=== PATIENT | female | born 1950 | race Caucasian/White ===

== ENCOUNTER 2021-09-15 16:59 | Inpatient (IN) | payer MEDICARE, OTHER ==
[~2021-09-15] VITALS: Ht 165.1 cm; Wt 59.0 kg
--- NOTE | 2021-09-15 17:05 | NUR ---
To ER bed 9, KEISHA RA889 From Home "Fell 1 wk ago since then been feeling weak", aaox3, breathing even and non labored, connected to monitor, awaiting md order
[2021-09-15] MEDS ORDERED: LEVO88TA5 PO (17:55)
--- NOTE | 2021-09-15 18:05 | NUR ---
HIGH SCHOOL MUSIC DIRECTOR AT BEDSIDE FOR BLOOD DRAW
--- NOTE | 2021-09-15 18:35 | NUR ---
PATIENT CANNOT GIVE URINE SAMPLE AT THIS TIME, MD AWARE. ORDERED 500ML OF IV NS
[2021-09-15] MEDS ORDERED: IV NS 0.9% 500 ML BAG IV ONE (19:00)
[2021-09-15 19:05] LABS: ALANINE AMINOTRANSFERASE 56 U/L (12-78); ALBUMIN 3.8 g/dL (3.4-5.0); ALKALINE PHOSPHATASE 112 U/L (46-116); ASPARTATE AMINOTRANSFERASE 41 U/L (15-37); BILIRUBIN,DIRECT 0.1 mg/dL (0.0-0.2); BILIRUBIN,TOTAL 0.7 mg/dL (0.2-1.0); CALCIUM, SERUM 8.8 mg/dL (8.5-10.1); CARBON DIOXIDE 22 mmol/L (21-32); CHLORIDE 103 mmol/L (98-107); CREATININE 2.1 mg/dL (0.6-1.3); GLUCOSE 118 mg/dL (74-106); POTASSIUM 3.8 mmol/L (3.5-5.1); SODIUM SERUM 137 mmol/L (136-145); TOTAL PROTEIN, SERUM 7.2 g/dL (6.4-8.2); UREA NITROGEN, BLOOD 23 mg/dL (7-18)
[2021-09-15 19:27] LABS: ACETAMINOPHEN 0 ug/ml (10-30); ALCOHOL, BLOOD 0 mg/dL (0-0)
--- NOTE | 2021-09-15 19:32 | NUR ---
STILL UNABLE TO PROVIDE URINE AT THIS TIME
[2021-09-15 20:23] LABS: BASOPHILS % (AUTO) 0.3 % (0.0-2.0); HEMATOCRIT 44 % (33-45); HEMOGLOBIN 15.1 g/dL (11.5-14.8); LYMPHOCYTES # (AUTO) 1.2 K/uL (0.8-4.8); LYMPHOCYTES % (AUTO) 8.4 % (20.0-44.0); MEAN CORPUSCULAR HGB CONC 34 g/dl (31.0-36.0); MEAN CORPUSCULAR VOLUME 89 fL (82-100); MONOCYTES # (AUTO) 1.7 K/uL (0.1-1.30); MONOCYTES % (AUTO) 11.8 % (2.0-12.0); NEUTROPHILS # (AUTO) 11.6 K/uL (1.8-8.9); NEUTROPHILS % (AUTO) 79.5 % (43.0-81.0); PLATELET COUNT (AUTO) 232 K/uL (150-450); RED BLOOD CELL COUNT(AUTO) 4.99 MIL/uL (4.0-5.2); WHITE BLOOD COUNT (AUTO) 14.6 K/uL (4.3-11.0)
--- NOTE | 2021-09-15 20:27 | NUR ---
COVID SWAB COLLECTED SENT TO LAB
[2021-09-15 20:30] VITALS: BP 136/84
--- NOTE | 2021-09-15 20:54 | NUR ---
MRSA SWAB COLLECTED AND SENT TO LAB. PATIENT'S BELONGINGS LIST DONE.
--- NOTE | 2021-09-15 22:14 | NUR ---
REPORT GIVEN TO CHARGE NURSE
--- NOTE | 2021-09-15 22:30 | NUR ---
ENVELOPE ADJUSTERDOOR ASSEMBLER NOTES RECEIVED PT FROM ED VIA FRANCISCA, A/O Lizeth3, DIFFICULT TO GET RELIABLE HPI DUE TO FREQUENT TANGENTS AND PARANOIA. NOT IN APPARENT DISTRESS. BREATHING EVEN AND NON-LABORED ON ROOM AIR. HAS LEFT WRIST IV ACCESS #22G AND SALINE LOCKED. NO S/S OF INFILTRATION NOTED. DISTENDED BLADDER NOTED. SAFETY PRECAUTIONS IN PLACE. WILL CONTINUE PLAN OF CARE.
--- NOTE | 2021-09-15 22:37 | NUR ---
PT TRANSFERRED UNDER ACLS
[2021-09-15] MEDS ORDERED: ONDANSETRON HCL/PF 4 MG/2 ML VIAL IVP PRN (23:00)
[2021-09-15] MEDS ORDERED: Z GUARD REMEDY 4 OZ OINT TP PRN (23:00)
[2021-09-15] MEDS ORDERED: IV 1/2NS 1000 ML 1,000 ML IV PRN (23:00)
[2021-09-16] VITALS: BP 122/59
--- NOTE | 2021-09-16 01:39 | NUR ---
PT HAD >835 ML URINE RETENTION. REFUSED FRANKLIN CATH. PT PEED ALREADY. ELVIS STANFORD NOTIFIED. Addendum: 09/16/21 at 0141 by September DARRIN SLATER Amended: Links added.
[2021-09-16] MEDS ORDERED: LORAZEPAM INJ 2 MG/ML VIAL IV PRN (02:00)
[2021-09-16 04:00] VITALS: BP 122/59
--- NOTE | 2021-09-16 06:45 | NUR ---
STITCH WHEELER NOTES PT ASKED FOR ACCUCHECK @ 0530. I TOLD HER THAT SHE DOESN'T HAVE AN ORDER BUT I WILL CHECK IT @ 0630. WHEN OFFERED, PT REFUSED AND VERBALIZED THAT SHE ALREADY DID IT.
[2021-09-16] MEDS: PANTOPRAZOLE 40 MG TABLET.DR PO SCH ×2 (07:30→08:15)
[2021-09-16] MEDS: LEVOTHYROXINE SODIUM 100 MCG TABLET PO SCH ×2 (07:30→08:16)
--- NOTE | 2021-09-16 07:34 | NUR ---
VACUUM FORMING MACHINE OPERATOR CLOSING NOTES PT LYING IN BED ASLEEP, EASY TO AROUSE. A/O X3. GETS AGITATED WHEN ASKED MULTIPLE QUESTIONS. REFUSED BLOOD DRAW THIS AM. NO C/O PAIN OR DISCOMFORT AT THIS. NO SOB OR NOTED. TOLERATING ROOM AIR WELL. HAS LEFT WRIST IV ACCESS #22G WITH 1/2 NS RUNNING AT 75 ML/HR. INTACT, PATENT AND FLUSHING. ALL NEEDS ATTENDED. SAFETY PRECAUTIONS IN PLACE: BED LOW AND LOCKED, SIDE RAILS UP X2, CALL LIGHT WITHIN REACH. Addendum: 09/16/21 at 0743 by September DARRIN SLATER ON TELE MONITOR READING SINUS RHYTHM AT 74 BPM.
--- NOTE | 2021-09-16 08:00 | NUR ---
RN NOTES RESTING IN BED, NOT IN ACUTE DISTRESS. DOES NOT WANT TO BE BOTHERED AT THIS TIME. VS REFUSED AND LAB REFUSED EARLIER. SAFETY MEASURES IN PLACE.
[2021-09-16] MEDS: HEPARIN SODIUM, PORCINE 5000 UNITS/1 ML VIAL SQ SCH ×2 (08:15→20:47)
--- NOTE | 2021-09-16 09:33 | NUR ---
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 EXPLAINED TO PATIENT THAT DIET WILL BE UPDATED ACCORDINGLY AND WILL CHECK WHY CONSULT WAS DONE. PATIENT INSISTED THAT SHE DOES NOT TAKE ANY MEDICATIONS AND IS OKAY.
--- NOTE | 2021-09-16 09:57 | NUR ---
RN NOTES PATIENT STATES THAT SHE IS VEGAN AND DOES NOT EAT ANIMAL PRODUCTS; DIET UPDATED.
--- NOTE | 2021-09-16 10:18 | NUR ---
RN NOTES PHLEB TECH AT BEDSIDE FOR BLOOD DRAW; PATIENT REFUSED ATTEMPT X2. WILL TRY AGAIN LATER.
--- NOTE | 2021-09-16 14:27 | NUR ---
RN NOTES PATIENT PULLED OUT PERIPHERAL IV LINE. CHARGE NURSE AND RN ASSIGNED AT BEDSIDE; PATIENT STATED THAT SHE DOES NOT NEED IV HYDRATION AND THAT SHE IS FINE AND THAT SHE IS GOING TO GO HOME TODAY. ASKED PATIENT WHO WILL PICK HER UP AND SHE SAID THAT HER DOCTOR AND HER BROTHER WILL PICK HER UP. UNABLE TO PROVIDE INFORMATION ABOUT PREVIOUS LIVING ARRANGEMENT.
--- NOTE | 2021-09-16 18:03 | NUR ---
RN NOTES PATIENT CONTINUE TO REFUSE LABS AND VITAL SIGNS; STATES THAT SHE IS FEELING OKAY. CHARGE NURSE AND MD AWARE.
--- NOTE | 2021-09-16 19:17 | NUR ---
RN NOTES ENDORSED TO DAIRY FEED SALES CONSULTANT RN FOR HERBERT.
--- NOTE | 2021-09-16 19:40 | NUR ---
TELE/RN OPENING NOTE RECEIVED PATIENT RESTING IN BED. AWAKE, ALERT AND ORIENTED X 2-3. ABLE TO MAKE NEEDS KNOWN. DENIES PAIN AT THIS TIME. CONTINUES ON ROOM AIR WITH NO S/SX OF RESPIRATORY DISTRESS NOTED. REFUSING IV ACCESS - MD AWARE. REFUSING TELE MONITOR - MD AWARE. ATTEMPTED TO HAVE ORTHODONTIC TECHNICIAN ASSISTANT PERFORM ADL CARE AT BEGINNING OF SHIFT WITH PATIENT REFUSING TO CHANGE. WILL ATTEMPT LATER IN THE SHIFT. CONTINUES ON REGULAR DIET WITH NO S/SX OF ASPIRATION NOTED. CALL LIGHT WITHIN REACH. ASPIRATION, FALL AND SAFETY PRECAUTIONS MAINTAINED. ALL NEEDS ATTENDED TO AT THIS TIME.
--- NOTE | 2021-09-16 20:50 | NUR ---
TELE/RN NOTE PATIENT REFUSING 2100 MEDICATIONS. EDUCATED ON RISKS/BENEFITS WITH PATIENT CONTINUING TO REFUSE. MD AWARE OF REFUSALS.
--- NOTE | 2021-09-16 22:30 | NUR ---
TELE/RN NOTE PATIENT REQUESTING BLOOD SUGAR TO BE CHECKED. RESULT IS 67. NO S/SX OF HYPOGLYCEMIA NOTED. PATIENT HAS BEEN REFUSING CARE/MEDS/MEALS. PROVIDED JUICE AND SNACKS.
--- NOTE | 2021-09-17 00:11 | NUR ---
TELE/RN NOTE PATIENT REFUSES FRANKLIN CATHETER TO BE PLACED. ALLOWED STAFF TO PERFORM ADL CARE WITH PATIENT NOTED TO BE INCONTINENT OF BOTH URINE AND BOWEL. Addendum: 09/17/21 at 0012 by LINDA GRIMM RN Amended: Links added.
--- NOTE | 2021-09-17 06:40 | NUR ---
TELE/RN CLOSING NOTE PATIENT CURRENTLY SLEEPING IN BED. ALERT AND ORIENTED X 2-3. ABLE TO MAKE NEEDS KNOWN. DENIES PAIN AT THIS TIME. CONTINUES ON ROOM AIR WITH NO S/SX OF RESPIRATORY DISTRESS NOTED. REFUSING IV ACCESS - MD AWARE. REFUSING TELE MONITOR - MD AWARE. REFUSING ADL CARE AT END OF SHIFT. CONTINUES ON REGULAR DIET WITH NO S/SX OF ASPIRATION NOTED. CALL LIGHT WITHIN REACH. ASPIRATION, FALL AND SAFETY PRECAUTIONS MAINTAINED. WILL ENDORSE PLAN OF CARE TO ONCOMING SHIFT RN.
[2021-09-17] MEDS: LEVOTHYROXINE SODIUM 100 MCG TABLET PO SCH (07:30)
[2021-09-17] MEDS: PANTOPRAZOLE 40 MG TABLET.DR PO SCH (07:30)
--- NOTE | 2021-09-17 07:30 | NUR ---
RN NOTES SEEN PATIENT IN BED, AWAKE AND VERBALLY RESPONSIVE. ASKED IF PATIENT IS OKAY AND IMMEDIATELY STATED "I DON'T WANT YOU HERE IN MY ROOM, GET OUT". REFUSED AM MEDS AND ALSO IV INSERTION/HYDRATION, STATED THAT SHE'S FEELING OKAY. SAFETY MEASURES IN PLACE.
--- NOTE | 2021-09-17 07:50 | NUR ---
RN NOTES PATIENT SEEN BY DR. THAYER AT BEDSIDE; PATIENT ALSO VERBALIZED "GO AWAY" TO MD. MD MADE AWARE THAT PATIENT REFUSED PSYCH CONSULT YESTERDAY AND MD STATED THAT PATIENT STILL NEEDS PSYCH CONSULT AND CRISIS TEAM INVOLVED.
[2021-09-17] MEDS: HEPARIN SODIUM, PORCINE 5000 UNITS/1 ML VIAL SQ SCH ×2 (08:21→21:00)
--- NOTE | 2021-09-17 08:22 | NUR ---
RN NOTES EXPLAINED IMPORTANCE OF VS, ASSESSMENT, AND MEDICATION COMPLIANCE TO PATIENT BUT PATIENT INSISTED ON REFUSING.
--- NOTE | 2021-09-17 08:22 | NUR ---
RN NOTES PER PSYCHIATRIC CNS ASSIGNED, PATIENT REFUSED VS TO BE TAKEN.
--- NOTE | 2021-09-17 09:22 | NUR ---
consult for parania, & safe discharge planning was requested over the weekend. NICK will follow up. Addendum: 09/17/21 at 0923 by NATHALIE ROMERO consult for paranoia
--- NOTE | 2021-09-17 10:31 | NUR ---
RN NOTES CRISIS TEAM CONTACTED BY PRODUCTION PLANNER. WILL COME TO SEE PATIENT.
--- NOTE | 2021-09-17 11:54 | NUR ---
RN NOTES SPOKE W/ JODY ([id number]), PATIENT'S HOME CAREGIVER, AND INFORMED ABOUT PATIENT'S CONDITION AND ADMISSION IN THE HOSPITAL.
--- NOTE | 2021-09-17 18:59 | NUR ---
RN NOTES SITTER AT BEDSIDE W/ PATIENT; STILL REFUSING CARE FROM STAFF. UNABLE TO BE REDIRECTED PATIENT GOES OFF ON TANGENT. SAFETY MEASURES MAINTAINED.
--- NOTE | 2021-09-17 19:20 | NUR ---
TELE/RN OPENING NOTE RECEIVED PATIENT RESTING IN BED. AWAKE, ALERT AND ORIENTED X 2. DENIES PAIN AT THIS TIME. CONTINUES ON ROOM AIR WITH NO S/SX OF RESPIRATORY DISTRESS NOTED. CONTINUES WITH 1:1 SITTER AND 5150 HOLD. CONTINUES TO REFUSE IV ACCESS. CONTINUES TO REFUSE TELE MONITOR. CALL LIGHT WITHIN REACH. ASPIRATION, FALL AND SAFETY PRECAUTIONS MAINTAINED. ALL NEEDS ATTENDED TO AT THIS TIME.
--- NOTE | 2021-09-17 21:15 | NUR ---
TELE/RN NOTE PATIENT REFUSING HS MEDICATIONS. STATES SHE DOES NOT NEED THEM. MD AWARE OF PATIENT REFUSALS. ALL NEEDS ATTENDED TO AT THIS TIME.
[2021-09-17] MEDS ORDERED: risperiDONE 1 MG TABLET PO ONE (22:00)
[2021-09-17] MEDS ORDERED: DIVALPROEX SODIUM 125 MG CAP.SPRINK PO ONE (22:00)
--- NOTE | 2021-09-17 22:20 | NUR ---
TELE/RN NOTE DR. GARCIA IN TONIGHT TO SEE PATIENT WITH NEW ORDERS FOR DEPAKOTE BID AND RISPERDAL BID. MD REQUESTED TO HAVE ONE DOSE OF EACH GIVEN TONIGHT. ORDERS INPUTTED. ATTEMPTED TO GIVE TO PATIENT WITH PATIENT REFUSING STATING "I HAVE NO PSYCH ISSUES. I DON'T NEED MEDICATION". 1:1 SITTER IN ROOM. PATIENT RESTING COMFORTABLY IN BED. ALL NEEDS ATTENDED TO AT THIS TIME.
--- NOTE | 2021-09-17 23:16 | NUR ---
PATIENT REFUSING FRANKLIN CATHETER PLACEMENT. PATIENT HAS BEEN URINATING WITHOUT DIFFICULTY. Addendum: 09/17/21 at 2316 by LINDA GRIMM RN Amended: Links added.
[2021-09-17] MEDS ORDERED: TRAZODONE 50 MG TABLET PO SCH (23:24)
--- NOTE | 2021-09-18 06:10 | NUR ---
TELE/RN CLOSING NOTE PATIENT CURRENTLY SLEEPING IN BED. ALERT AND ORIENTED X 2. DENIES PAIN AT THIS TIME. CONTINUES ON ROOM AIR WITH NO S/SX OF RESPIRATORY DISTRESS NOTED. CONTINUES WITH 1:1 SITTER AND 5150 HOLD. CONTINUES TO REFUSE IV ACCESS. CONTINUES TO REFUSE TELE MONITOR. CALL LIGHT WITHIN REACH. ASPIRATION, FALL AND SAFETY PRECAUTIONS MAINTAINED. ALL NEEDS ATTENDED TO AT THIS TIME. WILL ENDORSE PLAN OF CARE TO ONCOMING SHIFT RN.
[2021-09-18] MEDS: LEVOTHYROXINE SODIUM 100 MCG TABLET PO SCH (07:30)
[2021-09-18] MEDS: PANTOPRAZOLE 40 MG TABLET.DR PO SCH (07:30)
--- NOTE | 2021-09-18 07:30 | NUR ---
DIRECTOR CLINICAL RESEARCH OPENING NOTE Patient in bed, awake. A/O x 2, patient is agitated and paranoid. On room air, breathing evenly and unlabored. No SOB or s/s of distress noted. No IV access, patient refusing. MD aware. Patient refusing tele monitoring as well. Safety precautions in place: bed in low, locked position; siderails up x 2; call light within reach. Will continue to monitor.
[2021-09-18] MEDS ORDERED: DIVALPROEX SODIUM 125 MG CAP.SPRINK PO SCH (09:00)
[2021-09-18] MEDS ORDERED: risperiDONE 1 MG TABLET PO SCH (09:00)
[2021-09-18] MEDS: HEPARIN SODIUM, PORCINE 5000 UNITS/1 ML VIAL SQ SCH (09:00)
[2021-09-18 12:17] VITALS: BP 139/92
--- NOTE | 2021-09-18 14:30 | NUR ---
DISCHARGE NOTE Received order for discharge. Patient is A/O x 2, agitated and paranoid. Stable on room air, breathing evenly and unlabored. No SOB or s/s of distress noted. Patient is being discharged from acute care and transferred to GPS unit. Report given to NOHEMY Jeong. All belongings accounted for. No IV access. ID band removed. Patient refused photos to be taken of her multiple bruises and scratches. Patient wheeled down to GPS unit in stable condition. Exitcare folder given to RN.
[2021-09-18] MEDS ORDERED: HEPA50008 SQ (15:23)
[2021-09-18] MEDS ORDERED: DIVA125C2 PO (15:23)
[2021-09-18] MEDS ORDERED: RISP0.5T65 PO (15:23)
[2021-09-18] MEDS ORDERED: ALLA266C2 TP (15:23)
[2021-09-18] MEDS ORDERED: PANT40TA2 PO (15:23)
[2021-09-18] MEDS ORDERED: ONDA4TAB5 PO (15:26)
[2021-09-18] MEDS ORDERED: LORA2VIA6 IV (15:26)
== END 2021-09-18 14:40 | DRG 683 ==
LOC: ER 17:01 → TELE 22:05 → MED 09-18 13:49
PROVIDERS: ADMIT Nurse Practitioner Family; ATTEND Internal Medicine
DX: N17.0 Acute kidney failure with tubular necrosis (principal); F31.64 Bipolar disorder, current episode mixed, severe, with psychotic features; N18.9 Chronic kidney disease, unspecified; D72.829 Elevated white blood cell count, unspecified; Z20.822 Contact with and (suspected) exposure to COVID-19; Z91.040 Latex allergy status; Z88.5 Allergy status to narcotic agent; Z88.0 Allergy status to penicillin; Z88.2 Allergy status to sulfonamides; Z88.8 Allergy status to other drugs, medicaments and biological substances; Z91.018 Allergy to other foods; Z91.81 History of falling; W18.30XA Fall on same level, unspecified, initial encounter; Y92.002 Bathroom of unspecified non-institutional (private) residence as the place of occurrence of the external cause; E03.9 Hypothyroidism, unspecified; Z79.890 Hormone replacement therapy; F43.9 Reaction to severe stress, unspecified; R73.9 Hyperglycemia, unspecified; F29 Unspecified psychosis not due to a substance or known physiological condition
CPT/HCPCS: 36415; 70450-TC; 71045-TC; 76770-TC; 80048-TC; 80076-TC; 82962-TC; 84443-TC; 84484-TC; 85025-TC; 87081-TC; C9803; G0378; G0480; J1644; J3490; J7030; J7040

== ENCOUNTER 2021-09-18 11:30 | Inpatient (IN) | payer MEDICARE, OTHER ==
[~2021-09-18] VITALS: Ht 152.4 cm; Wt 61.2 kg
[~2021-09-18 11:30] MED LIST: LEVO88TA5 PO
--- NOTE | 2021-09-18 14:55 | NUR ---
RN-CO: Patient refused labs works 3x already.
[2021-09-18] MEDS ORDERED: MAGNESIUM HYDROXIDE 30 ML UDC PO PRN (15:00)
[2021-09-18] MEDS ORDERED: MAG HYDROX/AL HYDROX/SIMETH 30 ML UDC PO PRN (15:00)
[2021-09-18] MEDS ORDERED: ALLA266C2 TP (15:23)
[2021-09-18] MEDS ORDERED: PANT40TA2 PO (15:23)
[2021-09-18] MEDS ORDERED: DIVA125C2 PO (15:23)
[2021-09-18] MEDS ORDERED: HEPA50008 SQ (15:23)
[2021-09-18] MEDS ORDERED: RISP0.5T65 PO (15:23)
[2021-09-18] MEDS ORDERED: LORA2VIA6 IV (15:26)
[2021-09-18] MEDS ORDERED: ONDA4TAB5 PO (15:26)
[2021-09-18 16:00] VITALS: BP 149/99
[2021-09-18] MEDS ORDERED: BLOOD SUGAR DIAGNOSTIC 1 EACH STRIP IN ONE (16:30)
--- NOTE | 2021-09-18 16:52 | NUR ---
ACTING SECTION CHIEF NOTE : PATIENT 70 Y/O FEMALE ADMITTED FROM [facility] PATIENT PLACED ON 5150 HOLD FOR GD. 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 PATIENT THINKS THE POLICE ARE CONSPIRING AGAINST HER. PATIENT REFUSED ALL CARE.PATIENT IS AGITATED AND ANGRY REFUSING ALL CARE AND INTERVIEW,PATIENT HAS IMPAIRED JUDGMENT,POOR INSIGHT AND IMPULSE CONTROL .PATIENT UNABLE TO PROVIDE ASSISTED FOOD AND CLOTHING TO A MENTAL DISORDER. UPON FACE TO FACE ASSESSMENT PATIENT DISHEVELED AND UNKEPT,HYPERVERBAL RUDE,ANGRY, UNCOOPERATIVE,REFUSING TO ANSWER ALL THE QUESTIONS. UNABLE TO DO FULL ASSESSMENT DUE TO PATIENT UNCOOPERATIVE BEHAVIOR. PATIENT REFUSED SKIN ASSESSMENT , MRSA, SIGN ADMITTING PAPERS . N.P. VALDEMAR NOTIFIED AWARE OF ADMISSION STANDING ORDERS PLACED AND CARED OUT. WILL INDORSE INCOMING RN FOR CONTINUATION OF CARE.
[2021-09-18] MEDS ORDERED: ONDANSETRON 4 MG TAB.RAPDIS SL PRN (17:00)
[2021-09-18] MEDS ORDERED: Z GUARD REMEDY 4 OZ OINT TP PRN (17:00)
--- NOTE | 2021-09-18 19:15 | NUR ---
GPS RN NOTES RECEIVED LYING ON BED,A/O X4,COMMUNICATE WHEN ENGAGE,LIMITS VERBAL RESPONSE.CALM AND QUIET AT THE MOMENT, WILL CONTINUE TO MONITOR BEHAVIOR.
--- NOTE | 2021-09-18 21:30 | NUR ---
GPS RN NOTES MAKING ROUNDS,VERBALIZED SHE'S GETTING HYPOGLYCEMIC,OFFERED TO CHECK HER SUGAR BY ACCU-CHECK BUT REFUSED.COMMENTED SHE'LL WAIT FOR HER DOCTOR,THAT SHE HAS A LOT OF ALLERGY.OFFERED APPLE JUICE THAT SHE ASKED FOR BUT VERY PARANOID,SHE DOESNT WANT TO DRINK IT.
--- NOTE | 2021-09-18 23:20 | NUR ---
GPS RN NOTES AWAKE AND WALK BY HER ROOM FRONT DOOR WITH STEADY GAIT ASKING THERES LIGHT ON HER BED.VERY NEEDY ASKING FOR EVERYTHING.
--- NOTE | 2021-09-19 02:45 | NUR ---
GPS RN NOTES AWAKE,COMMENTED SHE'S HAVING LOW BLOOD SUGAR,BLOOD SUGAR CHECKED WAS 96,LABILE ,VERBALLY ABUSIVE,DEMANDING,NEEDY,HAVING FLIGHT OF IDEAS,TALKING TO SELF,DENIES WHAT SHE SAYS RIGHT AWAY.
--- NOTE | 2021-09-19 06:39 | NUR ---
GPS RN NOTES FAIRLY RESTED.SLEPT WITH INTERVALS.REFUSED BLOOD DRAW FOR MORNING LAB.UNCOOPERATIVE,NON COMPLIANT WITH MEDS,EASILY GETS AGITATED.
[2021-09-19] MEDS: PANTOPRAZOLE 40 MG TABLET.DR PO SCH (07:30)
[2021-09-19] MEDS: LEVOTHYROXINE SODIUM 88 MCG TABLET PO SCH (07:30)
[2021-09-19 08:00] VITALS: BP 136/73
--- NOTE | 2021-09-19 08:00 | NUR ---
RN-NOTES RECEIVED PATIENT LAYING IN BED AWAKE ALERT X2,GUARDED,NO ACUTE DISTRESS NOTED. NOTED WITH EASILY ANGRY AND IRRITABLE BEHAVIOR. REFUSED ALL 0730 MEDICATIONS DESPITE EXPLANATIONS OF THE RISK AND BENEFITS. OFFERED X3. PATIENT GETS ANGRY STATED" GET OUT OF THIS ROOM, NO MEDICATIONS FOR ME".
[2021-09-19] MEDS: DIVALPROEX SODIUM 125 MG CAP.SPRINK PO SCH ×2 (09:00→17:00)
[2021-09-19] MEDS: risperiDONE 1 MG TABLET PO SCH ×2 (09:00→17:00)
--- NOTE | 2021-09-19 10:02 | NUR ---
NICK Initial Discharge Plan: Patient currently resides at home [facility] [address], [place] [address]; ([phone]). Patient has a caregiver Christi ([phone]) who takes care of pt 7 days a week for about 9 hours. Patient does not have any supportive contact at this time. NICK will work with the MD and treatment plan to help coordinate appropriate discharge.
--- NOTE | 2021-09-19 10:03 | NUR ---
NICK Clinical Note: Pt placed on a 5150 hold for GD. Patient was refusing her care at home. Patient currently resides at home [facility] [address] [address] [facility], [place] [address]; ([phone]). Patient has a caregiver Christi ([phone]) who takes care of pt 7 days a week for about 9 hours. Patient does not have any supportive contact at this time.
--- NOTE | 2021-09-19 10:03 | NUR ---
Treatment Plan: Pt refused to sign treatment plan due to her paranoia.
--- NOTE | 2021-09-19 11:20 | NUR ---
RN-NOTES PATIENT REFUSED DEPAKOTE 250 MG P.O AND RISPERDAL 0.5MG P.O DESPITE EXPLANATIONS OF THE RISK AND BENEFITS. OFFERED X3. PATIENT GETS ANGRY STATED" I DON'T TAKE ANY MEDICATIONS ,I TOLD YOU EARLIER."
--- NOTE | 2021-09-19 14:22 | NUR ---
RN-NOTES ACCORDING TO THE PRODUCTION SOUND MIXER STAFF SHE HEARD A LOUD SOUND ON PATIENT'S ROOM AND UPON HER INVESTIGATION SHE FOUND THE AC COVER ON THE FLOOR. TECHNICAL SME INTERVIEWED THE PATIENT AND PATIENT DENIES DESTROYING OR TOUCHING THE AC COVER. CHARGE NURSE MADE AWARE. ENGINEERING WAS WAS CALLED TO FIXED THE AC COVER.
--- NOTE | 2021-09-19 17:28 | NUR ---
RN-NOTES PATIENT CONT. REFUSING DEPAKOTE 250 MG P.O AND RISPERDAL 0.5MG P.O DESPITE EXPLANATIONS OF THE RISK AND BENEFITS. PATIENT GETS ANGRY DELUSIONAL STATED" I DON'T TAKE ANY MEDICATIONS ,I'M AND I'M DOCTOR AND PSYCHIATRIST, GO AWAY".OFFERED X3. NOTED PATIENT RESPONDING TO INTERNAL STIMULI. ALL NEEDS ATTENDED AND ANTICIPATED. WILL ENDORSE TO INCOMING SHIFT FOR CONTINUITY OF CARE.
--- NOTE | 2021-09-19 17:54 | NUR ---
RN-NOTES PATIENT COMPLAIN ABOUT THE TEXTURE OF HER FOOD, STATED " I CANNOT CHEW FOOD BECAUSE I HAVE NO TEETH".CHEMICAL DEPENDENCY THERAPIST ASK THE PATIENT IF SHE WANTS A PUREE DIET AND PATIENT AGREED.
--- NOTE | 2021-09-19 19:20 | NUR ---
GPS RN NOTES UPON MAKING ROUNDS TO PATIENT'S ROOM 214. FOUND A/C THERMOSTAT FRONT BOX IS MISSING. SEARCHED IN PATIENT'S ROOM AND TRASH BAG. UNABLE TO LOCATE. WILL PLACE WORK ORDER FOR REPLACEMENT. Addendum: 09/20/21 at 0632 by TOMMY GARCÍA RN 0600 - UNABLE TO PLACE TMS WORK ORDER AT THIS TIME DUE TO INTERNET ISSUE FOR A/C THERMOSTAT COVER. WILL ENDORSE TO AM SHIFT/ASSESSMENT SPECIALIST.
[2021-09-19 20:00] VITALS: BP 123/74
--- NOTE | 2021-09-19 20:30 | NUR ---
RN NOTES: PATIENT WALKING AROUND THE UNIT, NO S/SX OF ACUTE DISTRESS NOTED. EASILY AGITATED, PARANOID, DISORGNIZED, DISHEVELED,DELUSIONAL ,NEEDY HYPERVERBAL LOUD TALKING TO SELF,NON COMPLIANT WITH MEDICATIONS, PT. TOOK SHOWER, NEEDS FREQUENTLY REDIRECTIONS , ,ENCOURAGED PT. TO VERBALIZATION OF THOUGHTS AND FEELINGS. SAFETY PRECAUTIONS IN PLACE. WILL CONTINUE TO MONITOR Q15MIN ROUNDS FOR SAFETY AND BEHAVIOR.
--- NOTE | 2021-09-19 22:32 | NUR ---
RN-NOTES: PATIENT REFUSED TO GIVE URINE SPECIMEN DESPITE EXPLANATIONS OF THE RISK AND BENEFITS. OFFERED X3. PATIENT BEHAVIOR, UNCOOPERTIVE ANXIOUS , PER PT. I DONT NEED ANY URINE SPECIMEN .
--- NOTE | 2021-09-19 22:34 | NUR ---
RN-NOTES: PATIENT REFUSED TO GIVE URINE SPECIMEN DESPITE EXPLANATIONS OF THE RISK AND BENEFITS. ENCOURAGED X3. PATIENT BEHAVIOR, UNCOOPERTIVE ANXIOUS , PER PT. I DONT NEED ANY URINE SPECIMEN .
--- NOTE | 2021-09-20 06:21 | NUR ---
RN-NOTES: PATIENT REFUSED AM LABS WORK AND GIVE URINE SPECIMEN DESPITE EXPLANATIONS OF THE RISK AND BENEFITS. ENCOURAGED X3.PT. STRONGLY REFUSED, PATIENT BEHAVIOR, UNCOOPERTIVE ANXIOUS ,YELLING TO THE STAFF PER PT. I DONT NEED ANY LABS ,URINE SPECIMEN .
--- NOTE | 2021-09-20 07:03 | NUR ---
RN NOTES: PATIENT RESTING IN HER ROOM , NO S/SX OF ACUTE DISTRESS NOTED. EASILY AGITATED, PARANOID, DISORGNIZED, DISHEVELED,DELUSIONAL , DEMENDING ,NEEDY HYPERVERBAL LOUD TALKING TO SELF,NON COMPLIANT WITH MEDICATIONS, NEEDS FREQUENTLY REDIRECTIONS , ,ENCOURAGED PT. TO VERBALIZATION OF THOUGHTS AND FEELINGS. SAFETY PRECAUTIONS IN PLACED. WILL CONTINUE TO MONITOR Q15MIN ROUNDS FOR SAFETY AND BEHAVIOR
[2021-09-20] MEDS: LEVOTHYROXINE SODIUM 88 MCG TABLET PO SCH (07:30)
[2021-09-20] MEDS: PANTOPRAZOLE 40 MG TABLET.DR PO SCH (07:30)
[2021-09-20 08:00] VITALS: BP 159/87
--- NOTE | 2021-09-20 08:16 | NUR ---
RN-NOTES REFUSED ALL 0730 MEDICATIONS DESPITE EXPLANATIONS OF THE RISK AND BENEFITS. . PATIENT GETS ANGRY STATED" NO MEDICATIONS FOR ME". OFFERED X3
[2021-09-20] MEDS: risperiDONE 1 MG TABLET PO SCH ×2 (09:00→17:00)
[2021-09-20] MEDS: DIVALPROEX SODIUM 125 MG CAP.SPRINK PO SCH ×2 (09:00→17:00)
--- NOTE | 2021-09-20 09:31 | NUR ---
RN-NOTES PATIENT REFUSED DEPAKOTE 250 MG P.O AND RISPERDAL 0.5MG P.O DESPITE EXPLANATIONS OF THE RISK AND BENEFITS. OFFERED X3.
--- NOTE | 2021-09-20 12:57 | NUR ---
RN-NOTES PATIENT REFUSED LAB DRAW AND REFUSED TO GIVE URINE SPECIMEN DESPITE EXPLANATIONS OF THE RISK AND BENEFITS. STATED" GO AWAY, I DON'T HAVE TO GIVE YOU ANYTHING,GO AWAY".
[2021-09-20 16:00] VITALS: BP 145/64
--- NOTE | 2021-09-20 17:03 | NUR ---
RN-NOTES PATIENT CONTINUE REFUSING DEPAKOTE 250 MG P.O AND RISPERDAL 0.5MG P.O DESPITE EXPLANATIONS OF THE RISK AND BENEFITS. OFFERED X3.
--- NOTE | 2021-09-20 17:28 | NUR ---
RN-NOTES PATIENT CONT. REFUSING MEDICATION THIS SHIFT,UNCOOPERATIVE,ARGUMENTATIVE WITH DELUSIONS AND GRANDIOSE AND PARANOID BEHAVIOR.STATED" I DON'T TAKE ANY MEDICATIONS ,I'M DOCTOR AND PSYCHIATRIST, GO AWAY, I DON'T WANT THE FOOD HERE, IT'S NOT GOOD FOR ME".PATIENT ALSO REFUSED TO GIVE URINE SPECIMEN. PATIENT STAYS IN HER ROOM REFUSED GROUPS. PATIENT NOTED RESPONDING TO INTERNAL STIMULI/TALKING TO SELF. ALL NEEDS ATTENDED AND ANTICIPATED. WILL CONT. MONITORING FOR SAFETY AND BEHAVIOR.WILL ENDORSE TO INCOMING SHIFT FOR CONTINUITY OF CARE.
--- NOTE | 2021-09-20 19:13 | NUR ---
GPS RN NOTES RECEIVED PATIENT IN BED RESTING COMFORTABLY. A/OX2. NO S/SX OF ACUTE DISTRESS NOTED. PATIENT REMAINS UNCOOPERATIVE, DELUSIONAL, PATIENT STATED, "I AM A PSYCHIATRIST". PATIENT IS HYPERVERBAL, TALKING TO SELF, ARGUMENTATIVE. SAFETY PRECAUTIONS IN PLACE. WILL CONTINUE TO MONITOR Q15 MIN ROUNDS FOR SAFETY AND BEHAVIOR.
[2021-09-20 20:00] VITALS: BP 150/91
--- NOTE | 2021-09-21 07:17 | NUR ---
GPS RN NOTES PATIENT REFUSED AM LABS DESPITE OF EXPLAINING THE IMPORTANCE. WILL ENDORSE TO AM SHIFT NURSE. Addendum: 09/21/21 at 0772 by LUZMA VIVEROS RN PATIENT ALSO REFUSED VITALS SIGNS FOR INITIAL ASSESSMENT.
[2021-09-21] MEDS: PANTOPRAZOLE 40 MG TABLET.DR PO SCH (08:23)
[2021-09-21] MEDS: LEVOTHYROXINE SODIUM 88 MCG TABLET PO SCH (08:23)
[2021-09-21] MEDS: risperiDONE 1 MG TABLET PO SCH ×2 (08:23→16:32)
[2021-09-21] MEDS: DIVALPROEX SODIUM 125 MG CAP.SPRINK PO SCH ×2 (08:23→16:33)
--- NOTE | 2021-09-21 09:30 | NUR ---
RN Notes: Received pt. awake in bed, suspicious and hyperverbal. Pt. refused the food being served for breakfast and requesting for a yogurt and kitchen provided and per pt. she is not allergy on yogurt. Pt. took the meds after explanation and motivations. Pt. is suspicious, irritable, argumentative and hyperverbal. Needs attended and will continue to monitor for safety.
[2021-09-21 15:04] LABS: BASOPHILS # (AUTO) 0.1 K/uL (0.0-0.2); BASOPHILS % (AUTO) 0.5 % (0.0-2.0); EOSINOPHILS % (AUTO) 0.2 % (0.0-6.0)
[2021-09-21 15:17] LABS: ALANINE AMINOTRANSFERASE 157 U/L (12-78); ALBUMIN 3.6 g/dL (3.4-5.0); ALKALINE PHOSPHATASE 101 U/L (46-116); ASPARTATE AMINOTRANSFERASE 108 U/L (15-37); BILIRUBIN,TOTAL 0.6 mg/dL (0.2-1.0); CALCIUM, SERUM 8.7 mg/dL (8.5-10.1); CARBON DIOXIDE 25 mmol/L (21-32); CHLORIDE 111 mmol/L (98-107); CREATININE 1.7 mg/dL (0.6-1.3); GLUCOSE 144 mg/dL (74-106); POTASSIUM 3.6 mmol/L (3.5-5.1); SODIUM SERUM 149 mmol/L (136-145); TOTAL PROTEIN, SERUM 7.3 g/dL (6.4-8.2); UREA NITROGEN, BLOOD 29 mg/dL (7-18)
[2021-09-21 16:02] LABS: HEMATOCRIT 46 % (33-45); HEMOGLOBIN 15.4 g/dL (11.5-14.8); LYMPHOCYTES # (AUTO) 1.8 K/uL (0.8-4.8); LYMPHOCYTES % (AUTO) 15.5 % (20.0-44.0); MEAN CORPUSCULAR HGB CONC 34 g/dl (31.0-36.0); MEAN CORPUSCULAR VOLUME 90 fL (82-100); MONOCYTES % (AUTO) 8.2 % (2.0-12.0); NEUTROPHILS # (AUTO) 8.9 K/uL (1.8-8.9); NEUTROPHILS % (AUTO) 75.6 % (43.0-81.0); PLATELET COUNT (AUTO) 302 K/uL (150-450); RED BLOOD CELL COUNT(AUTO) 5.08 MIL/uL (4.0-5.2); WHITE BLOOD COUNT (AUTO) 11.8 K/uL (4.3-11.0)
--- NOTE | 2021-09-21 20:47 | NUR ---
GPS RN NOTES PT RECEIVED IN SLEEPING BUT EASY TO AROUSED.ON ROOM AIR ARIANNE WELL.NO SIGN SOB/DISTRESS NOTED.ALL NEEDS ATTENDED.CALL LIGHT WITHIN REACH.SAFETY MEASURED IN PLACE.CONTINUE TO MONITOR.
[2021-09-22] MEDS: PANTOPRAZOLE 40 MG TABLET.DR PO SCH (08:08)
[2021-09-22] MEDS: LEVOTHYROXINE SODIUM 88 MCG TABLET PO SCH (08:08)
[2021-09-22] MEDS: risperiDONE 1 MG TABLET PO SCH ×2 (08:09→16:11)
[2021-09-22] MEDS: DIVALPROEX SODIUM 125 MG CAP.SPRINK PO SCH ×2 (08:10→16:13)
--- NOTE | 2021-09-22 11:20 | NUR ---
RN-CO: Patient is extremely demanding.Restless, and picky. She is disheveled and unkempt. Needs limit setting.
[2021-09-22] MEDS: GLUCERNA SHAKE 237 ML CAN PO SCH ×2 (12:00→16:32)
[2021-09-22] MEDS: LORAZEPAM 0.5 MG TABLET PO PRN (12:03)
--- NOTE | 2021-09-22 12:08 | NUR ---
RN-CO: Ativan 0.5 mg po given for patient being verbally abusive to staff and being restless.
--- NOTE | 2021-09-22 15:25 | NUR ---
RN-CO: Patient , was insisting in the morning to have Glucerna but now she changed her mind and stated the Glucerna can make her blood glucose higher. She is argumentative to staff and focus on how she wants to eat her food. She stated she is vegan but then she has a lot of plan allergies. RN made her specify and write what she want to eat each meal and communicated to kitchen staff. Addendum: 09/22/21 at 1651 by SRIRAM HUTCHISON RN plant allergies
--- NOTE | 2021-09-22 16:51 | NUR ---
RN-CO: Patient refused vital signs and pm meds.
[2021-09-23 06:30] LABS: BASOPHILS # (AUTO) 0.1 K/uL (0.0-0.2); BASOPHILS % (AUTO) 0.6 % (0.0-2.0); EOSINOPHILS % (AUTO) 0.8 % (0.0-6.0); HEMATOCRIT 44 % (33-45); HEMOGLOBIN 14.7 g/dL (11.5-14.8); LYMPHOCYTES # (AUTO) 2.1 K/uL (0.8-4.8); LYMPHOCYTES % (AUTO) 16.4 % (20.0-44.0); MEAN CORPUSCULAR HGB CONC 34 g/dl (31.0-36.0); MEAN CORPUSCULAR VOLUME 91 fL (82-100); MONOCYTES # (AUTO) 0.9 K/uL (0.1-1.30); MONOCYTES % (AUTO) 7.4 % (2.0-12.0); NEUTROPHILS # (AUTO) 9.6 K/uL (1.8-8.9); NEUTROPHILS % (AUTO) 74.8 % (43.0-81.0); PLATELET COUNT (AUTO) 286 K/uL (150-450); RED BLOOD CELL COUNT(AUTO) 4.82 MIL/uL (4.0-5.2); WHITE BLOOD COUNT (AUTO) 12.9 K/uL (4.3-11.0)
[2021-09-23 06:45] LABS: CALCIUM, SERUM 8.7 mg/dL (8.5-10.1); CREATININE 1.2 mg/dL (0.6-1.3); POTASSIUM 3.2 mmol/L (3.5-5.1)
[2021-09-23] MEDS: LEVOTHYROXINE SODIUM 88 MCG TABLET PO SCH ×2 (07:30→07:51)
[2021-09-23] MEDS: PANTOPRAZOLE 40 MG TABLET.DR PO SCH ×2 (07:30→07:52)
[2021-09-23 08:00] VITALS: BP 147/92
[2021-09-23] MEDS: GLUCERNA SHAKE 237 ML CAN PO SCH ×3 (08:00→17:00)
[2021-09-23] MEDS: DIVALPROEX SODIUM 125 MG CAP.SPRINK PO SCH ×2 (08:03→17:00)
[2021-09-23] MEDS: risperiDONE 1 MG TABLET PO SCH ×2 (08:03→17:00)
[2021-09-23] MEDS: POTASSIUM CHLORIDE 20 MEQ TAB.PRT.SR PO SCH ×2 (10:00→11:00)
[2021-09-23] MEDS ORDERED: HALOPERIDOL LACTATE INJ 5 MG/ML VIAL IM PRN (17:00)
[2021-09-23 19:52] VITALS: BP 155/76
[2021-09-24 08:00] VITALS: BP 147/71
[2021-09-24] MEDS: GLUCERNA SHAKE 237 ML CAN PO SCH ×3 (08:00→17:16)
[2021-09-24] MEDS: LEVOTHYROXINE SODIUM 88 MCG TABLET PO SCH (08:26)
[2021-09-24] MEDS: risperiDONE 1 MG TABLET PO SCH ×2 (08:27→17:16)
[2021-09-24] MEDS: DIVALPROEX SODIUM 125 MG CAP.SPRINK PO SCH ×2 (08:27→17:16)
[2021-09-24] MEDS: PANTOPRAZOLE 40 MG TABLET.DR PO SCH (08:27)
--- NOTE | 2021-09-24 08:50 | NUR ---
Individual Therapy: SW attempted to conduct therapy. Pt was unable to have conversation at this time due to her paranoia. Pt was fixated on her being and that she will be giving . SW unable to conduct therapy at this time.
[2021-09-24 16:00] VITALS: BP 132/64
--- NOTE | 2021-09-24 19:00 | NUR ---
Opening NOTES: alert and friendly In Her room in bed requested fresh water she let me know she has multiple allergies and showed me a list and telling me she does acupuncture and holistic medicine and she is writing a book on the subject Requesting her sleep medication as soon as possible , because she wants to stay in her room and to sleep, because there is so much going on out there (pointing towards the hallway) made her aware that I would be making round and be checking in on her for safety
[2021-09-24 19:23] VITALS: BP 155/88
[2021-09-24 20:04] VITALS: BP 155/88
[2021-09-24] MEDS: TEMAZEPAM 7.5 MG CAPSULE PO PRN (21:44)
[2021-09-25] MEDS: LORAZEPAM 0.5 MG TABLET PO PRN (05:26)
--- NOTE | 2021-09-25 06:01 | NUR ---
CLOSING NOTES: alert and orientated X2 enjoys conversation talks about how she isin Holistic medication and all her allergies and she stated she does Acupuncture. She is medicine compliant Restoril gonen and effective until she woke up at 05:00 with her stating "Help ME, I'm having an anxiety attack"..Ativan given, she had many question dealing with the medication Ativan. Noted she becomes easily agitated and argumentativshe has a steady gait
[2021-09-25 08:00] VITALS: BP 144/74
[2021-09-25] MEDS: PANTOPRAZOLE 40 MG TABLET.DR PO SCH (08:27)
[2021-09-25] MEDS: risperiDONE 1 MG TABLET PO SCH ×2 (08:27→16:43)
[2021-09-25] MEDS: LEVOTHYROXINE SODIUM 88 MCG TABLET PO SCH (08:27)
[2021-09-25] MEDS: DIVALPROEX SODIUM 125 MG CAP.SPRINK PO SCH ×3 (08:29→16:43)
[2021-09-25] MEDS: GLUCERNA SHAKE 237 ML CAN PO SCH ×3 (08:33→16:44)
[2021-09-25] MEDS ORDERED: DIVALPROEX SODIUM 125 MG CAP.SPRINK PO SCH (09:00)
[2021-09-25 16:00] VITALS: BP 134/72
--- NOTE | 2021-09-25 19:02 | NUR ---
RN-NOTES RN-NOTES PATIENT LYING ON BED,AWAKE,ALERT A/O X2, NOTED WITH GUARDED,NEEDY,EPISODE OF TALKING TO SELF AND EASILY ANGRY BEHAVIOR.COMPLIANT WITH MEDICATIONS. PATIENT AMBULATORY WITH STEADY GAIT.ALL NEEDS ATTENDED AND ANTICIPATED. PATIENT REFUSED SHOWER THIS SHIFT DESPITE ENCOURAGEMENT.REFUSED GROUP ACTIVITIES, ISOLATIVE IN THE ROOM. WILL CONT. MONITORING FOR SAFETY AND BEHAVIOR. WILL ENDORSE TO INCOMING NURSE FOR CONTINUITY OF CARE.
--- NOTE | 2021-09-25 19:45 | NUR ---
OPENING NOTES: IN BED LYING ON HER LEFT SIDE. WILL OPEN HER EYES WHEN NAME SPOKEN. RESP EVEN AND UNLABORED .
[2021-09-25 20:00] VITALS: BP 131/72
[2021-09-25] MEDS: TEMAZEPAM 7.5 MG CAPSULE PO PRN (22:01)
[2021-09-26] MEDS: LORAZEPAM 0.5 MG TABLET PO PRN ×2 (04:43→20:42)
--- NOTE | 2021-09-26 05:33 | NUR ---
CLOSING NOTES: ALERT AND ORIENTATED X2. SHE IS ARGUMENTATIVE. MEDICINE COMPLIANT. STAYED IN THE ROOM THIS ENTIRE SHIFT
--- NOTE | 2021-09-26 07:25 | NUR ---
WOUND CARE CONSULT: PT HAS BEEN REFUSING SKIN ASSESSMENT BUT PER NURSING STAFF, THERE ARE NO WOUNDS OR SKIN ISSUES NEEDING TREATMENT. CURRENT JOCELYNN SCORE IS 21. WILL SEE PRN.
[2021-09-26 08:00] VITALS: BP 118/61
[2021-09-26] MEDS: PANTOPRAZOLE 40 MG TABLET.DR PO SCH (08:25)
[2021-09-26] MEDS: DIVALPROEX SODIUM 125 MG CAP.SPRINK PO SCH ×3 (08:25→16:32)
[2021-09-26] MEDS: LEVOTHYROXINE SODIUM 88 MCG TABLET PO SCH (08:25)
[2021-09-26] MEDS: risperiDONE 1 MG TABLET PO SCH ×2 (08:25→16:33)
[2021-09-26] MEDS: GLUCERNA SHAKE 237 ML CAN PO SCH ×3 (08:28→16:33)
[2021-09-26 16:00] VITALS: BP 113/78
--- NOTE | 2021-09-26 18:03 | NUR ---
RN-NOTES PATIENT LAYING IN BED AWAKE,ALERT X2,GUARDED,NO ACUTE DISTRESS NOTED.REFUSED TO PARTICIPATES IN GROUPS. PATIENT NOTED WITH EASILY IRRITABLE BEHAVIOR. PATIENT IS AMBULATORY STEADY GAIT. WILL CONT. MONITORING FOR SAFETY AND BEHAVIOR. Addendum: 09/26/21 at 1848 by DAVID HOLLOWAY RN WILL ENDORSE TO THE INCOMING NURSE FOR CONTINUITY OF CARE.
--- NOTE | 2021-09-26 19:30 | NUR ---
GPS RN OPENING NOTE RECEIVED PT AWAKE IN BED. A/O X2. PT STABLE ON ROOM AIR. NO SOB OR S/S OF RESPIRATORY DISTRESS. BREATHING EVEN AND UNLABORED. NO COMPLAINTS OF PAIN AT THIS TIME. PT IS UNCOOPERATIVE AND EASILY AGITATED. PT DENIES SUICIDAL OR HOMICIDAL IDEATION AT THIS TIME. SAFETY PRECAUTIONS IN PLACE. BED IN LOWEST LOCKED POSITION, SIDE RAILS RAISED, BED ALARM ON, AND CALL LIGHT WITHIN REACH. ALL NEEDS MET AT THIS TIME.
[2021-09-26 20:00] VITALS: BP 142/70
--- NOTE | 2021-09-26 20:56 | NUR ---
RN NOTE PT IN BED CRYING AND STATED "I MISS MY CAT SO MUCH. I'M HAVING TOO MUCH ANXIETY RIGHT NOW". ADMINISTERED ATIVAN 0.5 MG FOR ANXIETY ORDERED. ALL OTHER NEEDS MET AT THIS TIME.
[2021-09-26] MEDS: TEMAZEPAM 7.5 MG CAPSULE PO PRN (21:46)
--- NOTE | 2021-09-26 21:49 | NUR ---
RN NOTE PT COMPLAINED OF INSOMNIA AND REQUESTED SLEEPING PILL. ADMINISTERED RESTORIL 7.5 MG ORDERED FOR INSOMNIA. ALL OTHER NEEDS MET AT THIS TIME.
--- NOTE | 2021-09-27 06:42 | NUR ---
GPS RN CLOSING NOTE PT AWAKE IN BED. A/O X2. PT STABLE ON ROOM AIR. NO SOB OR S/S OF RESPIRATORY DISTRESS. BREATHING EVEN AND UNLABORED. NO COMPLAINTS OF PAIN AT THIS TIME. PT IS UNCOOPERATIVE, EASILY AGITATED, NEEDY, AND ATTENTION SEEKING. PT DENIES SUICIDAL OR HOMICIDAL IDEATION AT THIS TIME. ALL DUE MEDS GIVEN ORDERED. SAFETY PRECAUTIONS IN PLACE AT ALL TIMES. BED IN LOWEST LOCKED POSITION, SIDE RAILS RAISED, BED ALARM ON, AND CALL LIGHT WITHIN REACH. ALL NEEDS MET AT THIS TIME AND WILL ENDORSE TO ONCOMING NURSE FOR HERBERT.
[2021-09-27 08:00] VITALS: BP 130/67
[2021-09-27] MEDS: DIVALPROEX SODIUM 125 MG CAP.SPRINK PO SCH ×3 (08:49→18:13)
[2021-09-27] MEDS: risperiDONE 1 MG TABLET PO SCH ×2 (08:49→18:13)
[2021-09-27] MEDS ORDERED: risperiDONE 1 MG TABLET PO SCH (09:00)
--- NOTE | 2021-09-27 09:00 | NUR ---
GPS/RN RECEIVED PATIENT RESTING IN BED, ALERT X2,GUARDED,NO ACUTE DISTRESS NOTED.DAILY MEDS COMPLIANT. PATIENT IS AMBULATORY STEADY GAIT.ALL NEEDS ATTENDED AND ANTICIPATED. WILL CONTINUE MONITORING Q15MIN FOR SAFETY AND BEHAVIOR.
[2021-09-27] MEDS: GLUCERNA SHAKE 237 ML CAN PO SCH ×3 (09:13→17:00)
[2021-09-27] MEDS: LEVOTHYROXINE SODIUM 88 MCG TABLET PO SCH (09:13)
[2021-09-27] MEDS: PANTOPRAZOLE 40 MG TABLET.DR PO SCH (09:13)
--- NOTE | 2021-09-27 10:28 | NUR ---
Individual Therapy: SW attempted to conduct therapy at this time. Pt appeared paranoid and suspicious. She did not want to conduct therapy at this time.
[2021-09-27 16:00] VITALS: BP 120/71
--- NOTE | 2021-09-27 19:15 | NUR ---
GPS RN NOTES RECEIVED PATIENT RESTING IN BED. ALERT AND ORIENTED X2. NO S/SX OF ACUTE DISTRESS NOTED. PATIENT IS ANXIOUS, ARGUMENTATIVE AT TIMES AND IRRITABLE. NO VERBALIZATION OF THOUGHTS AND FEELINGS. SAFETY PRECAUTIONS MAINTAINED. WILL CONTINUE TO MONITOR Q15 MIN ROUNDS FOR SAFETY AND BEHAVIOR.
[2021-09-27 20:10] VITALS: BP 135/60
[2021-09-28 08:00] VITALS: BP 110/66
[2021-09-28] MEDS: GLUCERNA SHAKE 237 ML CAN PO SCH ×3 (08:00→16:13)
[2021-09-28] MEDS: PANTOPRAZOLE 40 MG TABLET.DR PO SCH (08:18)
[2021-09-28] MEDS: LEVOTHYROXINE SODIUM 88 MCG TABLET PO SCH (08:18)
[2021-09-28] MEDS: DIVALPROEX SODIUM 125 MG CAP.SPRINK PO SCH ×3 (08:18→16:14)
[2021-09-28] MEDS: risperiDONE 1 MG TABLET PO SCH ×2 (08:18→16:14)
--- NOTE | 2021-09-28 09:00 | NUR ---
GPS/RN RECEIVED PATIENT RESTING IN BED, ALERT X2,GUARDED,NO ACUTE DISTRESS NOTED.DAILY MEDS COMPLIANT. PATIENT IS AMBULATORY STEADY GAIT. ALL NEEDS ATTENDED AND ANTICIPATED. WILL CONTINUE MONITORING Q15MIN FOR SAFETY AND BEHAVIOR.
[2021-09-28] MEDS ORDERED: HALOPERIDOL DECANOATE IM 100 MG/ML AMPUL IM ONE (13:00)
[2021-09-28 16:00] VITALS: BP 122/65
--- NOTE | 2021-09-28 19:15 | NUR ---
GPS RN NOTES RECEIVED PATIENT RESTING IN BED. ALERT AND ORIENTED X2. NO S/SX OF ACUTE DISTRESS NOTED. PATIENT REMAINS WITHDRAWN, ISOLATIVE, ANXIOUS AT TIMES AND IRRITABLE. NO VERBALIZATION OF THOUGHTS AND FEELINGS. ENCOURAGED PATIENT TO ATTEND IN GROUP ACTIVITIES. SAFETY PRECAUTIONS MAINTAINED. WILL CONTINUE TO MONITOR Q15 MIN ROUNDS FOR SAFETY AND BEHAVIOR.
[2021-09-28 20:34] VITALS: BP 112/60
[2021-09-29 08:03] VITALS: BP 126/73
[2021-09-29] MEDS: DIVALPROEX SODIUM 125 MG CAP.SPRINK PO SCH ×3 (08:25→16:55)
[2021-09-29] MEDS: risperiDONE 1 MG TABLET PO SCH ×2 (08:25→16:55)
[2021-09-29] MEDS: PANTOPRAZOLE 40 MG TABLET.DR PO SCH (08:25)
[2021-09-29] MEDS: LEVOTHYROXINE SODIUM 88 MCG TABLET PO SCH (08:25)
[2021-09-29] MEDS: GLUCERNA SHAKE 237 ML CAN PO SCH ×3 (08:26→16:55)
[2021-09-29 16:06] VITALS: BP 116/65
[2021-09-29 20:00] VITALS: BP 125/60
--- NOTE | 2021-09-29 23:00 | NUR ---
GPS RN NOTES PT RESTING IN BED. A/O X2. BREATHING EVEN AND NON-LABORED ON ROOM AIR. NOT IN APPARENT DISTRESS. GUARDED, PLEASANT MOOD. AMBULATORY W/ STEADY GAIT. ALL NEEDS ATTENDED AND ANTICIPATED. WILL CONTINUE MONITORING Q15MIN FOR SAFETY AND BEHAVIOR.
--- NOTE | 2021-09-30 02:37 | NUR ---
PT REFUSED WEEKLY SKIN ASSESSMENT. EXPLAINED IMPORTANCE, OFFERED X3.
[2021-09-30 08:00] VITALS: BP 128/69
[2021-09-30] MEDS: risperiDONE 1 MG TABLET PO SCH ×2 (08:14→16:25)
[2021-09-30] MEDS: PANTOPRAZOLE 40 MG TABLET.DR PO SCH (08:14)
[2021-09-30] MEDS: LEVOTHYROXINE SODIUM 88 MCG TABLET PO SCH (08:14)
[2021-09-30] MEDS: DIVALPROEX SODIUM 125 MG CAP.SPRINK PO SCH ×3 (08:16→16:25)
[2021-09-30] MEDS: GLUCERNA SHAKE 237 ML CAN PO SCH ×3 (08:26→16:25)
--- NOTE | 2021-09-30 09:00 | NUR ---
GPS RN NOTE: PATIENT IN HER ROOM RESTING IN BED AWAKE , NO S/S DISTRESS NOTED AT THIS TIME PATIENT COMPLAINT WITH HER MORNING PO MEDIATIONS. WILL CONTINUE MONITORING.
--- NOTE | 2021-09-30 15:17 | NUR ---
Coordination of Care: Patient will follow up with (Team Member) Dr. Amanda Carpio located at located at [address] [place] [address] [address], [place] [address]; ([phone]) on November 19 at 3:45PM, scheduled by supervisor rose grading.
[2021-09-30 16:00] VITALS: BP 136/75
--- NOTE | 2021-09-30 16:15 | NUR ---
Individual Counseling: SW met with pt. to complete individual counseling. The pt. is irritable with syphoric mood&affect. Pt. discussed wanting to discharge. SW gave feedback on presenting problem. Pt. stated she does speak ot her psychiatrist who she likes very much. Pt. states psychiatrist is nice.
[2021-09-30 18:37] LABS: BILIRUBIN,URINE NEGATIVE (NEGATIVE); COLOR,URINE YELLOW (YELLOW); LEUKOCYTE ESTERASE ,URINE NEGATIVE (NEGATIVE); NITRITE, URINE NEGATIVE (NEGATIVE); PROTEIN,URINE NEGATIVE (NEGATIVE); UGLUCOSE NEGATIVE (NEGATIVE); UROBILINOGEN,URINE 0.2 EU/dL (0.2)
--- NOTE | 2021-09-30 19:15 | NUR ---
GPS RN NOTES RECEIVED PATIENT RESTING IN BED ALERT AND ORIENTED X2. NO S/SX OF ACUTE DISTRESS NOTED. PATIENT REMAINS WITHDRAWN, ISOLATIVE, ANXIOUS AT TIMES, WITH NO INTERACTION WITH PEERS.NO VERBALIZATION OF THOUGHTS AND FEELINGS. SAFETY PRECAUTIONS MAINTAINED. ENCOURAGED TO ATTEND IN GROUP ACTIVITIES. WILL CONTINUE TO MONITOR Q15 MIN ROUNDS FOR SAFETY AND BEHAVIOR.
[2021-09-30 19:35] VITALS: BP 155/91
[2021-10-01] MEDS: PANTOPRAZOLE 40 MG TABLET.DR PO SCH (07:52)
[2021-10-01] MEDS: LEVOTHYROXINE SODIUM 88 MCG TABLET PO SCH (07:52)
[2021-10-01] MEDS: GLUCERNA SHAKE 237 ML CAN PO SCH ×3 (07:59→16:27)
[2021-10-01 08:00] VITALS: BP 142/72
[2021-10-01] MEDS: risperiDONE 1 MG TABLET PO SCH ×2 (08:18→16:38)
[2021-10-01] MEDS: DIVALPROEX SODIUM 125 MG CAP.SPRINK PO SCH ×3 (09:14→16:38)
--- NOTE | 2021-10-01 09:31 | NUR ---
RN-CO: RECEIVED PT AWAKE, NO S/S OF DISCOMFORTS. SHE IS LESS ARGUMENTATIVE, HOWEVER HER SPEECH IS PRESSURED AND EYE CONTACT IS INTENSE. SHE IS DEMANDING AND MOST OF THE TIMES IT CONTRADICTS TO HER MULTIPLE ALLERGIES. SHE TOOK HER MEDICATIONS THIS MORNING.
--- NOTE | 2021-10-01 09:39 | NUR ---
Steeping Press Tender: SW received a call from pt's caregiver Christi ([phone]) who stated that she quit and is no longer pt's caregiver.
--- NOTE | 2021-10-01 09:43 | NUR ---
NICK Note: SW spoke with pt and advised that her caregiver quit. SW gave pt options to nursing facility and she refused and stated she is able to take care of herself and she needs to go back home because she needs to care for her cat.
--- NOTE | 2021-10-01 10:22 | NUR ---
NICK SNF Referral: NICK sent clinicals to [facility] ([phone]) for placement. NICK sent H & P, progress notes, and medications list.
[2021-10-01 11:00] LABS: BASOPHILS % (AUTO) 0.5 % (0.0-2.0); EOSINOPHILS % (AUTO) 0.7 % (0.0-6.0); HEMATOCRIT 43 % (33-45); HEMOGLOBIN 14.2 g/dL (11.5-14.8); LYMPHOCYTES # (AUTO) 1.2 K/uL (0.8-4.8); LYMPHOCYTES % (AUTO) 16.2 % (20.0-44.0); MEAN CORPUSCULAR HGB CONC 33 g/dl (31.0-36.0); MEAN CORPUSCULAR VOLUME 90 fL (82-100); MONOCYTES # (AUTO) 0.8 K/uL (0.1-1.30); MONOCYTES % (AUTO) 11.5 % (2.0-12.0); NEUTROPHILS # (AUTO) 5.1 K/uL (1.8-8.9); NEUTROPHILS % (AUTO) 71.1 % (43.0-81.0); PLATELET COUNT (AUTO) 217 K/uL (150-450); RED BLOOD CELL COUNT(AUTO) 4.74 MIL/uL (4.0-5.2); WHITE BLOOD COUNT (AUTO) 7.1 K/uL (4.3-11.0)
[2021-10-01 11:14] LABS: CARBON DIOXIDE 27 mmol/L (21-32); CHLORIDE 106 mmol/L (98-107); CREATININE 0.9 mg/dL (0.6-1.3); GLUCOSE 96 mg/dL (74-106); POTASSIUM 3.8 mmol/L (3.5-5.1); SODIUM SERUM 142 mmol/L (136-145); UREA NITROGEN, BLOOD 10 mg/dL (7-18)
--- NOTE | 2021-10-01 13:14 | NUR ---
NICK SNF Contact: NICK received a call from [employer] admin from who stated that pt is accepted.
[2021-10-01 16:00] VITALS: BP 129/73
--- NOTE | 2021-10-01 19:15 | NUR ---
GPS RN NOTES RECEIVED PATIENT RESTING IN BED ALERT AND ORIENTED X2. NO S/SX OF ACUTE DISTRESS NOTED. PATIENT IS CALM, COOPERATIVE AND WITHDRAWN. NO VERBALIZATION OF THOUGHTS AND FEELINGS. ENCOURAGED PT TO ATTEND IN GROUP ACTIVITIES. SAFETY PRECAUTIONS MAINTAINED. ENCOURAGED TO ATTEND IN GROUP ACTIVITIES. WILL CONTINUE TO MONITOR Q15 MIN ROUNDS FOR SAFETY AND BEHAVIOR.
[2021-10-01 20:27] VITALS: BP 117/67
[2021-10-02 08:00] VITALS: BP 132/76
--- NOTE | 2021-10-02 08:09 | NUR ---
SW Discharge Note: Patient will be discharged to usp facility [facility] [address], [place] [address]; ). Please arrange ambulance at 1PM. Tread Cutter spoke with Tim Materials Research Engineer at [facility]; ([phone]), who stated patient will be accepted today. Patient does not have any family to contact. Patient is alert and oriented x2 and is unable to plan for self-care. Patient denies any suicidal or homicidal ideations. Patient is aware and agreeable with discharge plans. Patient will continue to follow-up with (Psychiatrist) Dr. Carpio [address], [place] [address]; ([phone]) and (Flasher Adjuster) Dr. Luna [address] [facility] [address], [place] [address]; ([phone]). Patient presents with euthymic mood and congruent affect.
[2021-10-02] MEDS: risperiDONE 1 MG TABLET PO SCH (08:19)
[2021-10-02] MEDS: DIVALPROEX SODIUM 125 MG CAP.SPRINK PO SCH ×2 (08:19→13:15)
[2021-10-02] MEDS: PANTOPRAZOLE 40 MG TABLET.DR PO SCH (08:19)
[2021-10-02] MEDS: GLUCERNA SHAKE 237 ML CAN PO SCH ×2 (08:20→12:00)
[2021-10-02] MEDS: LEVOTHYROXINE SODIUM 88 MCG TABLET PO SCH (08:20)
--- NOTE | 2021-10-02 10:11 | NUR ---
Ip/Mosaic Technician: SW received a call from pt's caregiver Christi ([phone]) who stated that she is taking care of pt's cat.
[2021-10-02 11:12] LABS: ALBUMIN 2.8 g/dL (3.4-5.0); BILIRUBIN,DIRECT 0.1 mg/dL (0.0-0.2); BILIRUBIN,TOTAL 0.2 mg/dL (0.2-1.0); TOTAL PROTEIN, SERUM 6.1 g/dL (6.4-8.2)
--- NOTE | 2021-10-02 13:40 | NUR ---
Patient discharged to [facility] in stable condition.Compliant with medications ,cooperative with treatment plans Patient denies SI/HI/AVH .Behavior improved ,psychiatric tx plans met ,medical tx plans differed for for continual monitoring .Educated pt about after care plan (Exit -care)and copy provided .Returned personal belongings to patient med list given and explained to patient able to verbalize understanding, report given to Guy HAUSER in facility .Vs stable ,no c/o pain .Patient seen by and DR.Theo Coello with discharge orders .Patient discharge at 1340 with ambulance.
== END 2021-10-02 13:40 | DRG 885 ==
LOC: GPS 11:30
PROVIDERS: ADMIT Psychiatry & Neurology Psychiatry; ATTEND Internal Medicine
DX: F29 Unspecified psychosis not due to a substance or known physiological condition (principal); N17.0 Acute kidney failure with tubular necrosis; N18.9 Chronic kidney disease, unspecified; E03.9 Hypothyroidism, unspecified; Z73.6 Limitation of activities due to disability; F32.A Depression, unspecified; F22 Delusional disorders; D72.829 Elevated white blood cell count, unspecified; E87.6 Hypokalemia; F43.10 Post-traumatic stress disorder, unspecified; Z79.899 Other long term (current) drug therapy; L20.9 Atopic dermatitis, unspecified; Z90.49 Acquired absence of other specified parts of digestive tract; Z91.14 Patient's other noncompliance with medication regimen; Z91.19 Patient's noncompliance with other medical treatment and regimen; R74.01 Elevation of levels of liver transaminase levels; E88.09 Other disorders of plasma-protein metabolism, not elsewhere classified
CPT/HCPCS: 36415; 80048-TC; 80053-TC; 80076-TC; 80164-TC; 82962-TC; 85025-TC; J1630; J1631

== ENCOUNTER 2022-03-19 15:17 | Inpatient (IN) | payer MEDICARE, OTHER ==
[~2022-03-19] VITALS: Ht 154.9 cm; Wt 49.4 kg
[2022-03-19 12:40] VITALS: BP 118/73
[~2022-03-19 15:17] MED LIST changes: +ALLA266C2 TP; +HEPA50008 SQ; +ONDA4TAB5 PO; +PANT40TA2 PO
--- NOTE | 2022-03-19 17:09 | NUR ---
DR NG AT BEDSIDE
--- NOTE | 2022-03-19 17:37 | NUR ---
PATIENT NOT ABLE TO PROVIDE URINE SAMPLE. MADE MD AWARE
[2022-03-19 17:42] LABS: BASOPHILS % (AUTO) 0.3 % (0.0-2.0); EOSINOPHILS % (AUTO) 0.2 % (0.0-6.0); HEMATOCRIT 50 % (33-45); HEMOGLOBIN 16.8 g/dL (11.5-14.8); LYMPHOCYTES # (AUTO) 1.9 K/uL (0.8-4.8); LYMPHOCYTES % (AUTO) 20.7 % (20.0-44.0); MEAN CORPUSCULAR HGB CONC 34 g/dl (31.0-36.0); MEAN CORPUSCULAR VOLUME 91 fL (82-100); MONOCYTES # (AUTO) 0.9 K/uL (0.1-1.30); MONOCYTES % (AUTO) 10.1 % (2.0-12.0); NEUTROPHILS # (AUTO) 6.2 K/uL (1.8-8.9); NEUTROPHILS % (AUTO) 68.7 % (43.0-81.0); PLATELET COUNT (AUTO) 218 K/uL (150-450); WHITE BLOOD COUNT (AUTO) 9.1 K/uL (4.3-11.0)
--- NOTE | 2022-03-19 17:53 | NUR ---
RAPID COVID SWAB DONE AND SENT TO LAB
[2022-03-19 18:19] LABS: ALANINE AMINOTRANSFERASE 59 U/L (12-78); ALBUMIN 4.3 g/dL (3.4-5.0); ALKALINE PHOSPHATASE 91 U/L (46-116); ASPARTATE AMINOTRANSFERASE 41 U/L (15-37); BILIRUBIN,DIRECT 0.5 mg/dL (0.0-0.2); BILIRUBIN,TOTAL 1.6 mg/dL (0.2-1.0); CALCIUM, SERUM 9.9 mg/dL (8.5-10.1); CARBON DIOXIDE 25 mmol/L (21-32); CHLORIDE 109 mmol/L (98-107); CREATININE 1.1 mg/dL (0.6-1.3); GLUCOSE 98 mg/dL (74-106); LIPASE 361 U/L (73-393); POTASSIUM 3.6 mmol/L (3.5-5.1); SODIUM SERUM 150 mmol/L (136-145); TOTAL PROTEIN, SERUM 7.6 g/dL (6.4-8.2); UREA NITROGEN, BLOOD 30 mg/dL (7-18)
--- NOTE | 2022-03-19 18:37 | NUR ---
PATIENT NOT ABLE TO PROVIDE URINE SAMPLE. MADE MD AWARE
[2022-03-19] MEDS ORDERED: IV NS 0.9% 1,000 ML BAG IV ONE (19:00)
[2022-03-19] MEDS ORDERED: MAGNESIUM HYDROXIDE 30 ML UDC PO PRN (21:00)
[2022-03-19] MEDS ORDERED: ZOLPIDEM TARTRATE 5 MG TABLET PO PRN (21:00)
[2022-03-19] MEDS ORDERED: IV NS 0.9% 1,000 ML IV PRN (21:00)
[2022-03-19] MEDS ORDERED: ONDANSETRON HCL/PF 4 MG/2 ML VIAL IVP PRN (21:00)
[2022-03-19] MEDS ORDERED: Z GUARD REMEDY 4 OZ OINT TP PRN (21:00)
[2022-03-19] MEDS ORDERED: MAG HYDROX/AL HYDROX/SIMETH 30 ML UDC PO PRN (21:00)
[2022-03-19] MEDS ORDERED: ACETAMINOPHEN 325 MG TABLET PO PRN (21:00)
[2022-03-19 21:02] LABS: BILIRUBIN,URINE 2+ (NEGATIVE); COLOR,URINE YELLOW (YELLOW); LEUKOCYTE ESTERASE ,URINE 2+ (NEGATIVE); NITRITE, URINE POSITIVE (NEGATIVE); PROTEIN,URINE 1+ mg/dl (NEGATIVE); UGLUCOSE NEGATIVE (NEGATIVE)
[2022-03-19 21:06] LABS: BACTERIA,URINE 1+ /HPF (None Seen)
--- NOTE | 2022-03-20 00:15 | NUR ---
REPORT GIVN TO BIC ON THID FLOOR
--- NOTE | 2022-03-20 00:50 | NUR ---
TRANSFERRED TO THIRD FLOOR IN STABLE CONDITION
[2022-03-20 01:00] VITALS: BP 118/73
[2022-03-20] MEDS: HEPARIN SODIUM, PORCINE 5000 UNITS/1 ML VIAL SQ SCH ×5 (01:29→21:00)
--- NOTE | 2022-03-20 01:30 | NUR ---
MS SOFTWARE TEST DEVELOPER NOTES: RECEIVED PATIENT VIA GURNEY FROM ER ON STABLE CONDITION, TRANSFER TO ROOM 327-1, NO COMPLAIN OF PAIN AND DISCOMFORT AT THIS TIME, ON ROOM AIR SATURATING WELL, WITH IV LINE AT RAC#20 WITH ONGOING 0.9NSS@75ML/HR INFUSING WELL, SKIN ASSESSMENT DONE PICTURED AND DOCUMENTED, INVENTORY DONE, AND SIGNED, PATIENT KEPT CLEAN AND DRY ALL NEEDS MET WILL CONTINUE TO MONITOR.
--- NOTE | 2022-03-20 06:10 | NUR ---
MS RN CLOSING NOTES: PATIENT SLEEP IN BED COMFORTABLY, AROUSABLE TO VERBAL STIMULI, BED IN LOW POSITION CALL LIGHTS WITHIN RECH, NO COMPLAIN OF PAIN AND DISCOMFORT , ON ROOM AIR SATURATING WELL, WITH IV LINE AT RAC #20 WITH ONGOING NSS@75ML/HR INFUSING WELL, PATIENT KEPT CLEAN AND DRY ALL NEEDS MET ENDORSE TO INCOMING SHIFT.
[2022-03-20] MEDS: PANTOPRAZOLE 40 MG TABLET.DR PO SCH ×2 (07:30→08:43)
[2022-03-20] MEDS ORDERED: LEVOTHYROXINE SODIUM 100 MCG TABLET PO SCH (07:30)
--- NOTE | 2022-03-20 07:58 | NUR ---
MS RN OPENING NOTES: PATIENT AWAKE IN BED, A/O X3. ON RA, TOLERATING WELL. BED IN LOW POSITION CALL LIGHTS WITHIN REACH, NO COMPLAIN OF PAIN AND DISCOMFORT WITH IV LINE AT RAC #20 WITH ONGOING NSS@75ML/HR INFUSING WELL. WILL MONITOR.
[2022-03-20 08:28] VITALS: BP 110/72
[2022-03-20 08:58] LABS: BASOPHILS # (AUTO) 0.1 K/uL (0.0-0.2); BASOPHILS % (AUTO) 0.6 % (0.0-2.0); EOSINOPHILS % (AUTO) 0.5 % (0.0-6.0); HEMATOCRIT 46 % (33-45); HEMOGLOBIN 15.5 g/dL (11.5-14.8); LYMPHOCYTES % (AUTO) 22.2 % (20.0-44.0); MEAN CORPUSCULAR HGB CONC 34 g/dl (31.0-36.0); MEAN CORPUSCULAR VOLUME 89 fL (82-100); MONOCYTES # (AUTO) 0.9 K/uL (0.1-1.30); MONOCYTES % (AUTO) 10.3 % (2.0-12.0); NEUTROPHILS # (AUTO) 6.1 K/uL (1.8-8.9); NEUTROPHILS % (AUTO) 66.4 % (43.0-81.0); PLATELET COUNT (AUTO) 190 K/uL (150-450); RED BLOOD CELL COUNT(AUTO) 5.09 MIL/uL (4.0-5.2); WHITE BLOOD COUNT (AUTO) 9.2 K/uL (4.3-11.0)
[2022-03-20 09:48] LABS: CALCIUM, SERUM 8.4 mg/dL (8.5-10.1); CREATININE 0.9 mg/dL (0.6-1.3); PHOSPHORUS 1.3 mg/dL (2.5-4.9)
[2022-03-20] MEDS ORDERED: LEVOFLOXACIN 250 MG /D5W 50 ML 250 MG in PREMIX 1 EA IV SCH ×2 (10:00→11:00)
--- NOTE | 2022-03-20 10:00 | NUR ---
patient refused morning medications, Dr. Julio Morales made aware and to decrease levothyroxine to 88 mcg as patient stated she just take levothyroxine [address] Morales made new order of the dosage.
[2022-03-20 10:01] LABS: THYROID STIMULATING HORMONE 2.677 uIU/mL (0.358-3.74)
[2022-03-20 10:16] LABS: POTASSIUM 2.7 mmol/L (3.5-5.1)
[2022-03-20] MEDS ORDERED: POTASSIUM CHLORIDE 20 MEQ TAB.PRT.SR PO ONE (11:00)
[2022-03-20] MEDS ORDERED: POTASSIUM CHLORIDE 20 MEQ POWDER PACKET PO ONE ×2 (12:00→13:00)
[2022-03-20] MEDS: LEVOTHYROXINE SODIUM 88 MCG TABLET PO SCH (12:39)
[2022-03-20] MEDS: NITROFURANTOIN/MONOHYDRATE MACROCRYSTALS 100 MG CAPSULE PO SCH ×3 (15:01→21:00)
[2022-03-20 16:49] VITALS: BP 123/64
[2022-03-20] MEDS ORDERED: Sodium Phosphate 30 MMOL in IV NS 0.9% 250 ML IV SCH (17:00)
--- NOTE | 2022-03-20 18:31 | NUR ---
MS RN CLOSING NOTES: PATIENT AWAKE IN BED A/OX4, ABLE TO MAKE NEEDS KNOWN. ON RA, TOLERATING WELL. PATIENT WAS NON-COOPERATIVE AND REFUSING MOST OF HER MEDICATIONS STATING SHE DOES NOT NEED MEDICATIONS. EXPLAINED RISK OF REFUSAL HOWEVER PATIENT STILL NOT COOPERATING, MD MADE AWARE OF THE REFUSAL. NO COMPLAIN OF PAIN AND DISCOMFORT , WITH IV LINE AT RAC #20 WITH ONGOING NSS@75ML/HR INFUSING WELL, PATIENT KEPT CLEAN AND DRY ALL NEEDS MET ENDORSE TO INCOMING SHIFT.
--- NOTE | 2022-03-20 19:00 | NUR ---
MS RN OPENING NOTE: PATIENT IS IN BED SLEEPING EASILY BEING AROUSED. SHE IS ALERT AND ORIENTED, A/O X3. PATIENT IS ON RA, NO S/S OF SOB OR DISTRESS; TOLERATING WELL. IV ACCESS IS AT HER R AC, #20G, SL. PATIENT REFUSED TO BE CONNECTED WITH THE IV TUBING / IV FLUID. EDUCATED THE PATIENT, PATIENT STATED "I JUST WANT TO SLEEP, LEAVE ME ALONE". FLUSHED THE IV ACCESS WITH 10 CC NS, PATIENT AND INTACT. SAFETY MEASURES ARE IN PLACE: BED IS IN LOWEST AND LOCKED POSITION; SIDE RAILS UP X 2. INSTRUCTED PATIENT TO CALL THE WILEY WHEN SHE NEEDS HELP. WILL CONTINUE MONITOR PATIENT'S CONDITION AND PROVIDE THE CARE THIS PATIENT NEEDS THROUGHOUT THE SHIFT.
[2022-03-20 20:00] VITALS: BP 120/67
--- NOTE | 2022-03-20 21:04 | NUR ---
MS RN NOTE PATIENT REFUSED MEDICATION HEPARIN AND NITROFURANTOIN DUE AT 2100. NITROFURANTOIN WAS RETURNED TO THE OMNICELL; HEPARIN WAS WASTED IN THE MEDICATION WASTED SHARP CONTAINER DUE TO THE MEDICATION HAS BEEN DRAWN OUT OF THE BOTTLE. NOHEMY ALMONTE, WITNESSED.
--- NOTE | 2022-03-21 06:19 | NUR ---
MS RN NOTE PATIENT REFUSED AM BLOOD LAB DRAWS.
[2022-03-21] MEDS: PANTOPRAZOLE 40 MG TABLET.DR PO SCH (07:30)
[2022-03-21] MEDS: LEVOTHYROXINE SODIUM 88 MCG TABLET PO SCH (07:30)
--- NOTE | 2022-03-21 07:42 | NUR ---
MS RN CLOSING NOTE: PATIENT IS IN BED, AWAKE AND ORIENTED. A/O X3. PATIENT REFUSED MORNING LAB BLOOD DRAW. PATIENT IS ON RA, NO S/S OF SOB OR DISTRESS; TOLERATING WELL. IV ACCESS IS AT HER R AC, #20G, SL. PATIENT REFUSED TO BE CONNECTED WITH THE IV TUBING / IV FLUID. EDUCATED THE PATIENT, PATIENT STILL REFUSED. FLUSHED THE IV ACCESS WITH 10 CC NS, PATIENT AND INTACT. SAFETY MEASURES ARE IN PLACE: BED IS IN LOWEST AND LOCKED POSITION; SIDE RAILS UP X 2. INSTRUCTED PATIENT TO CALL THE WILEY WHEN SHE NEEDS HELP. ENDORSED THE DAY SHIFT NURSE TO CONTINUE THE PATIENT CARE.
[2022-03-21 08:34] VITALS: BP 124/76
[2022-03-21] MEDS: HEPARIN SODIUM, PORCINE 5000 UNITS/1 ML VIAL SQ SCH ×2 (09:00→21:00)
[2022-03-21] MEDS: NITROFURANTOIN/MONOHYDRATE MACROCRYSTALS 100 MG CAPSULE PO SCH ×2 (09:00→21:00)
[2022-03-21] MEDS ORDERED: POTASSIUM CHLORIDE 20 MEQ TAB.PRT.SR PO ONE ×2 (11:30→16:00)
[2022-03-21] MEDS: ENSURE ENLIVE 237 ML LIQUID (VANILLA) PO SCH ×2 (11:38→17:03)
[2022-03-21] MEDS: DIVALPROEX SODIUM 125 MG CAP.SPRINK PO SCH ×2 (13:00→17:00)
--- NOTE | 2022-03-21 15:19 | NUR ---
RN NOTES PT EDUCATED IMPORTANCE OF BEING COMPLIANT WITH CARE, PT REDIRECTED TO ENCOURAGE PO MEDICATIONS, IV ORDERS AND CARE , PT STILL REFUSING TO BE COMPLIANT WITH THE CARE , COMPLAINING OF WANTED DIFFERENT FOOD, KITCHEN CALLED AND PUT IN AN ORDER FOR TUNA WITH NO BREAD DUE TO THE ALLERGY TO GLUTEN, KITCHEN PREPARED A BALL OF TUNA AND GIVEN TO PATIENT THEN SHE COMPLAINED NO BREAD AND EXPLAINED THE ALLERGY SITUATION, PT REDIRECTED AND NON COMPLIANT AT THIS TIME , ALL SAFETY MEASURES IN PLACE AND BED CALL LIGHT IN REACH. PT ABLE TO MAKE NEEDS KNOWN.
[2022-03-21] MEDS ORDERED: K PHOS NEUTRAL 250 MG TABLET PO ONE (16:00)
[2022-03-21 16:34] VITALS: BP 122/71
--- NOTE | 2022-03-21 16:56 | NUR ---
RN NOTES BEFORE PULLING MEDICATIONS FROM [facility] , I PROVIDED INFORMATION TO PT & EDUCATED ABOUT MEDICATIONS . INFORMED OF THE PROS AND CONS OF TAKING AND NOT TAKING MEDICATIONS, AND PT STATED SHE DID NOT NEED NOR WANT MEDICATIONS AT THIS TIME, ENCOURAGED TO RE - EVALUATE THAT DECSION AND TAKE A MOMENT TO TRY TO UNDERSTAND THE IMPORTANCE OF BEING COMPLIANT WITH OUR CARE OUR GOAL IS TO HELP HER MAINTAIN HER HEALTH TO THE BEST OF HER ABILITY HOWEVER PT REFUSING ALL MED ORDERS AT THIS TIME. PT WILLING TO EAT AND DRINK ON HER OWN AND REQUESTING DIFFERENT TYPES OF FOODS, STAFF AND MY SELF ARE ACCOMMODATING HER NEEDS TO THE OF OUR ABILITIES WITH THE RESOURCES THAT WE HAVE AT THIS TIME.
--- NOTE | 2022-03-21 19:10 | NUR ---
MS RN OPENING NOTE: PATIENT IS IN BED SLEEPING EASILY BEING AROUSED. SHE IS ALERT. A/O X3. PATIENT IS ON RA, NO S/S OF SOB OR DISTRESS; TOLERATING WELL. IV ACCESS IS AT HER R AC, #20G, SL. PATIENT REFUSED TO BE CONNECTED WITH THE IV TUBING / IV FLUID. EDUCATED THE PATIENT, PATIENT STATED "I DON'T NEED IT. LEAVE ME ALONE". FLUSHED THE IV ACCESS WITH 10 CC NS, PATIENT AND INTACT. PATIENT TALKED ABOUT A LONG LIST OF HER PREVIOUS CAREGIVER'S NAMES, AND STATED THAT SHE DIDN'T WANT THEM. REORIENTED THE PATIENT, HOWEVER, PATIENT SATED SHE JUST WANTED TO SLEEP. SAFETY MEASURES ARE IN PLACE: BED IS IN LOWEST AND LOCKED POSITION; SIDE RAILS UP X 2. INSTRUCTED PATIENT TO CALL THE WILEY WHEN SHE NEEDS HELP. WILL CONTINUE MONITOR PATIENT'S CONDITION AND PROVIDE THE CARE THIS PATIENT NEEDS THROUGHOUT THE SHIFT.
--- NOTE | 2022-03-21 19:30 | NUR ---
MS RN NOTE PATIENT REFUSED BEING TAKEN VITAL SIGNS BY LINDSEY ADDISON. TALKED WITH THE PATIENT, SHE STILL REFUSED.
--- NOTE | 2022-03-21 21:17 | NUR ---
MS RN NOTE PATIENT REFUSED TAKING MEDICATION HEPARIN AND NITROFURANTOIN DUE AT 2100. EDUCATED THE PATIENT THE IMPORTANCE OF TAKING THE MEDICATIONS, PATIENT STILL REFUSED. PATIENT STATED THAT "I DON'T NEED MEDICATIONS".
--- NOTE | 2022-03-22 06:51 | NUR ---
MS RN CLOSING NOTE: PATIENT IS IN BED SLEEPING, EASILY BEING AROUSED. SHE IS ALERT, A/O X3. PATIENT IS ON RA, NO S/S OF SOB OR DISTRESS; TOLERATING WELL. IV ACCESS IS AT HER R AC, #20G, SL. FLUSHED THE IV ACCESS WITH 10 CC NS, PATIENT AND INTACT. PATIENT REFUSED TO BE CONNECTED WITH THE IV TUBING / IV FLUID. SHE REFUSED HAVING MEDICATIONS DUE (SEE NURSING NOTES) LAST NIGHT. PATIENT ASKED ME TO LEAVE HER ALONE SO SHE CAN SLEEP. SAFETY MEASURES ARE IN PLACE: BED IS IN LOWEST AND LOCKED POSITION; SIDE RAILS UP X 2; CALL WILEY AND BEDSIDE TABLE ARE IN REACH. WILL ENDORSE NEXT SHIFT NURSE FOR CONTINUING PATIENT CARE.
[2022-03-22 07:12] LABS: CALCIUM, SERUM 8.2 mg/dL (8.5-10.1); CREATININE 0.7 mg/dL (0.6-1.3); POTASSIUM 3.2 mmol/L (3.5-5.1)
[2022-03-22] MEDS: PANTOPRAZOLE 40 MG TABLET.DR PO SCH (07:30)
[2022-03-22 08:00] VITALS: BP 106/67
--- NOTE | 2022-03-22 08:22 | NUR ---
RN OPENING NOTE RECEIVED PATIENT IN BED, AO X 3. ABLE TO RESPONDS PHYSICAL STIMULI. RESPIRATORY EVEN AND UNLABORED ROOM AIR. IN NO ACUTE DISTRESS OBSERVED. SKIN IS WARM TO TOUCH, KEEP CLEAN/DRY. KEPT ELEVATED HOB FOR ASPIRATION PRECAUTION/ENSURE AIRWAY, AND LOWEST BED POSITIONED. BED ALARM IS ON AT ALL THE TIME FOR SAFETY. CALL LIGHT WITHIN REACH, WILL CONTINUE TO MONITOR.
[2022-03-22] MEDS: NITROFURANTOIN/MONOHYDRATE MACROCRYSTALS 100 MG CAPSULE PO SCH (08:37)
[2022-03-22] MEDS: LEVOTHYROXINE SODIUM 88 MCG TABLET PO SCH (08:37)
[2022-03-22] MEDS: DIVALPROEX SODIUM 125 MG CAP.SPRINK PO SCH ×2 (08:37→13:00)
[2022-03-22] MEDS: HEPARIN SODIUM, PORCINE 5000 UNITS/1 ML VIAL SQ SCH (08:40)
[2022-03-22] MEDS: ENSURE ENLIVE 237 ML LIQUID (VANILLA) PO SCH ×2 (08:41→12:00)
--- NOTE | 2022-03-22 08:48 | NUR ---
PATIENT REFUSED HEPARIN, WILL INFORM .
[2022-03-22] MEDS: POTASSIUM CHLORIDE 20 MEQ TAB.PRT.SR PO SCH ×2 (10:00→11:00)
--- NOTE | 2022-03-22 10:13 | NUR ---
PATIENT REFUSED POTASSIUM AND HEPARIN DUE ON THIS MORNING, MADE AWARE.
[2022-03-22] MEDS ORDERED: K PHOS NEUTRAL 250 MG TABLET PO ONE (11:00)
--- NOTE | 2022-03-22 14:00 | NUR ---
PATIENT SEEN BY CRISIS TEAM CONSULT, AND RECEIVED 5150, 3DAYS HOLD BY JONI SMITH.
[2022-03-22] MEDS ORDERED: Sodium Phosphate 15 MMOL in IV NS 0.9% 245 ML IV SCH (15:30)
--- NOTE | 2022-03-22 15:45 | NUR ---
PATIENT D/C TO [facility], GIVEN REPORT DAVID/NOHEMY. PATIENT IN STABLE CONDITION, IN NO ACUTE DISTRESS OBSERVED. REFUSED IV POTASSIUM PO, REMOVED IV LINE REFUSED AND REFUSED TO HAVE IV LINE. ALSO PATIENT REFUSED SIGN ON EXIT CARE FORM.
[2022-03-22 16:00] VITALS: BP 100/56
--- NOTE | 2022-03-22 16:21 | NUR ---
Patient transferred to room 213-1, accompanied by 2 staff with wheelchair. Handed all documents to the celeste/psych nurses. patient in stable condition, in no acute distress.
[2022-03-22] MEDS ORDERED: DIVA125C2 PO (16:53)
[2022-03-22] MEDS ORDERED: LACT-246 PO (16:53)
[2022-03-22] MEDS ORDERED: NITR100C6 PO (16:53)
[2022-03-22] MEDS ORDERED: ACET325T53 PO (16:53)
[2022-03-22] MEDS ORDERED: LEVO88TA2 PO (16:53)
[2022-03-22] MEDS ORDERED: MAG30ORA PO (17:00)
[2022-03-22] MEDS ORDERED: MAGN400O6 PO (17:00)
== END 2022-03-22 16:15 | DRG 640 ==
LOC: ER 15:29 → MED 03-20 00:25
PROVIDERS: ADMIT Nurse Practitioner Acute Care; ATTEND Nurse Practitioner Acute Care
DX: E87.0 Hyperosmolality and hypernatremia (principal); N17.0 Acute kidney failure with tubular necrosis; N39.0 Urinary tract infection, site not specified; R62.7 Adult failure to thrive; E86.0 Dehydration; Z20.822 Contact with and (suspected) exposure to COVID-19; Z90.49 Acquired absence of other specified parts of digestive tract; Z91.199 Patient's noncompliance with other medical treatment and regimen due to unspecified reason; E89.0 Postprocedural hypothyroidism; Y83.9 Surgical procedure, unspecified as the cause of abnormal reaction of the patient, or of later complication, without mention of misadventure at the time of the procedure; Y92.9 Unspecified place or not applicable; Z88.6 Allergy status to analgesic agent; Z88.1 Allergy status to other antibiotic agents; Z91.040 Latex allergy status; Z88.5 Allergy status to narcotic agent; Z88.0 Allergy status to penicillin; Z88.2 Allergy status to sulfonamides; Z88.8 Allergy status to other drugs, medicaments and biological substances; Z91.018 Allergy to other foods; Z91.09 Other allergy status, other than to drugs and biological substances; Z79.01 Long term (current) use of anticoagulants; Z79.899 Other long term (current) drug therapy; F43.10 Post-traumatic stress disorder, unspecified; F32.A Depression, unspecified; Z91.14 Patient's other noncompliance with medication regimen; R74.01 Elevation of levels of liver transaminase levels; E83.39 Other disorders of phosphorus metabolism; E87.6 Hypokalemia; F22 Delusional disorders; B96.89 Other specified bacterial agents as the cause of diseases classified elsewhere; F25.9 Schizoaffective disorder, unspecified; R41.9 Unspecified symptoms and signs involving cognitive functions and awareness; F29 Unspecified psychosis not due to a substance or known physiological condition
CPT/HCPCS: 36415; 71045-TC; 80048-TC; 80061-TC; 80076-TC; 81001; 83690-TC; 83735-TC; 84100-TC; 84443-TC; 84484-TC; 85025-TC; 87081-TC; A4216; A9563; C9803; G0378; J1644; J1956; J7030; J7050

== ENCOUNTER 2022-03-22 15:57 | Inpatient (IN) | payer MEDICARE, OTHER ==
[~2022-03-22] VITALS: Ht 165.1 cm; Wt 48.5 kg
[2022-03-22] MEDS ORDERED: MAGNESIUM HYDROXIDE 30 ML UDC PO PRN ×2 (16:30→19:30)
[2022-03-22] MEDS ORDERED: MAG HYDROX/AL HYDROX/SIMETH 30 ML UDC PO PRN ×2 (16:30→19:30)
[2022-03-22] MEDS ORDERED: TEMAZEPAM 7.5 MG CAPSULE PO PRN (16:30)
[2022-03-22] MEDS ORDERED: BLOOD SUGAR DIAGNOSTIC 1 EACH STRIP IN ONE (16:30)
[2022-03-22] MEDS ORDERED: LORAZEPAM 0.5 MG TABLET PO PRN (16:30)
--- NOTE | 2022-03-22 16:30 | NUR ---
RN-ADMISSION NOTES ADMITTED 71 Y.O FEMALE PATIENT FROM [address] PATIENT ON [address] SANCHEZ (COVERING PSYCHIATRIST) AND DR. CURRIE ( GRAPHITE PAN DRIER TENDER) MADE AWARE OF THE ADMISSION. UPON FACE TO FACE ASSESSMENT, PATIENT REFUSED TO ANSWER MOST OF THE QUESTIONS, EASILY IRRITABLE AND ANGRY.MOST OF THE INFORMATION WAS TAKEN FROM THE DISCHARGE AND PREVIOUS RECORD. ADVISEMENT WAS REVIEWED AND SERVED TO HER AND PATIENT'S RIGHT BOOKLET WAS GIVEN TO THE PATIENT.CONTRABAND AND SKIN ASSESSMENT DONE. NO FAMILY TO NOTIFY ON THE ADMISSION. PATIENT WAS ORIENTED IN THE UNIT AND UNIT POLICIES. WILL CONT. MONITORING FOR SAFETY AND BEHAVIOR.WILL ENDORSE TO THE INCOMING NURSE FOR CONTINUITY OF CARE. AND ADMISSION PROCESS. Addendum: 03/22/22 at 1844 by DAVID HOLLOWAY RN PATIENT ALERT ORIENTED X3.
[2022-03-22] MEDS ORDERED: NITR100C6 PO (16:53)
[2022-03-22] MEDS ORDERED: LEVO88TA2 PO (16:53)
[2022-03-22] MEDS ORDERED: LACT-246 PO (16:53)
[2022-03-22] MEDS ORDERED: DIVA125C2 PO (16:53)
[2022-03-22] MEDS ORDERED: ACET325T53 PO (16:53)
[2022-03-22 17:00] VITALS: BP 114/67
[2022-03-22] MEDS ORDERED: MAG30ORA PO (17:00)
[2022-03-22] MEDS ORDERED: MAGN400O6 PO (17:00)
[2022-03-22] MEDS ORDERED: ACETAMINOPHEN 325 MG TABLET PO PRN (19:30)
[2022-03-22 20:00] VITALS: BP 143/81
--- NOTE | 2022-03-22 20:22 | NUR ---
RN NOTES: PATIENT RESTING IN HER BED, NO S/SX OF ACUTE DISTRESS NOTED. REFUSED TO ANSWER QUESTIONS PATIENT EASILY AGITATED, DISORGANIZED, PARANOID,ANXIOUS , POOR JUDGEMENT INSIGHT AND IMPULSE CONTROL NEEDS FREQUENT REDIRECTION, ALL NEEDS ATTENDED AND ANTICIPATED, DENIES SI/HI AT THIS TIME.ENCOURAGE TO VERBALIZED ANY FEELING OR CONCERN, SAFETY MEASURES IN PLACE. WILL CONTINUE TO MONITOR .
[2022-03-22] MEDS: NITROFURANTOIN/MONOHYDRATE MACROCRYSTALS 100 MG CAPSULE PO SCH (21:00)
--- NOTE | 2022-03-22 21:06 | NUR ---
RN NOTES: REFUSED MEDICATION PT. REFUSED SCHEDULE MEDS MACROBID 100MG PO 1 CAPSULE , ENCOUARGED X3 EXPLINED RISKS AND BENEFITS, BUT PT. STRONGLY REFUSED DUE TO UNCOOPERTIVE , EASILY AGITATED, PARANOID .
[2022-03-23 07:23] LABS: BASOPHILS % (AUTO) 0.5 % (0.0-2.0); EOSINOPHILS % (AUTO) 0.4 % (0.0-6.0); HEMATOCRIT 42 % (33-45); HEMOGLOBIN 14.8 g/dL (11.5-14.8); LYMPHOCYTES # (AUTO) 1.2 K/uL (0.8-4.8); LYMPHOCYTES % (AUTO) 19.4 % (20.0-44.0); MEAN CORPUSCULAR HGB CONC 35 g/dl (31.0-36.0); MEAN CORPUSCULAR VOLUME 88 fL (82-100); MONOCYTES # (AUTO) 0.7 K/uL (0.1-1.30); MONOCYTES % (AUTO) 11.4 % (2.0-12.0); NEUTROPHILS # (AUTO) 4.3 K/uL (1.8-8.9); NEUTROPHILS % (AUTO) 68.3 % (43.0-81.0); PLATELET COUNT (AUTO) 148 K/uL (150-450); RED BLOOD CELL COUNT(AUTO) 4.83 MIL/uL (4.0-5.2); WHITE BLOOD COUNT (AUTO) 6.3 K/uL (4.3-11.0)
[2022-03-23] MEDS: PANTOPRAZOLE 40 MG TABLET.DR PO SCH ×2 (07:30→07:58)
[2022-03-23 07:47] LABS: ALBUMIN 2.7 g/dL (3.4-5.0); BILIRUBIN,TOTAL 0.5 mg/dL (0.2-1.0); CALCIUM, SERUM 8.1 mg/dL (8.5-10.1); CREATININE 0.8 mg/dL (0.6-1.3); MAGNESIUM 1.8 mg/dL (1.8-2.4); POTASSIUM 3.5 mmol/L (3.5-5.1); TOTAL PROTEIN, SERUM 5.8 g/dL (6.4-8.2)
[2022-03-23] MEDS: LEVOTHYROXINE SODIUM 88 MCG TABLET PO SCH (07:56)
[2022-03-23 08:00] VITALS: BP 137/69
[2022-03-23] MEDS: DIVALPROEX SODIUM 125 MG CAP.SPRINK PO SCH ×6 (08:32→17:00)
[2022-03-23] MEDS: NITROFURANTOIN/MONOHYDRATE MACROCRYSTALS 100 MG CAPSULE PO SCH ×3 (08:32→21:00)
[2022-03-23] MEDS: ENSURE ENLIVE 237 ML LIQUID (VANILLA) PO SCH ×3 (08:33→17:00)
[2022-03-23] MEDS: OLANZAPINE 2.5 MG TABLET PO SCH ×2 (09:15→11:55)
[2022-03-23 16:00] VITALS: BP 97/64
[2022-03-23] MEDS ORDERED: NEUTRA PHOS 1 POWD.PACKET PO ONE (16:00)
--- NOTE | 2022-03-23 17:26 | NUR ---
NURSE NOTE: PT REFUSED MEDS THROUGHOUT SHIFT. STATED THAT SHE DOESN'T NEED THEM. ENCOURAGED TO TAKE AND INSTRUCTED ON USE, BUT PT REFUSED TO ALL BUT THE LEVOTHYROXINE.
[2022-03-23 20:36] VITALS: BP 104/55
--- NOTE | 2022-03-23 21:41 | NUR ---
Pt refused medication Macrobid 100 mg 1 cap. Explained risk and benefits and offered x3. Still refused. Pt states, " i dont want that medication because i dont have a UTI or any kind of infection." Charge nurse aware. Will continue to monitor. Will endorse to next shift.
--- NOTE | 2022-03-24 06:35 | NUR ---
Automotive Diagnostic Technician reported, pt refused AM blood draw. Offered x 3 and explained risk and benefits, still refused. Will endorse to next shift.
[2022-03-24] MEDS: PANTOPRAZOLE 40 MG TABLET.DR PO SCH (07:30)
[2022-03-24] MEDS: LEVOTHYROXINE SODIUM 88 MCG TABLET PO SCH (07:54)
[2022-03-24 08:00] VITALS: BP 113/65
[2022-03-24] MEDS: DIVALPROEX SODIUM 125 MG CAP.SPRINK PO SCH ×3 (08:28→17:00)
[2022-03-24] MEDS: ENSURE ENLIVE 237 ML LIQUID (VANILLA) PO SCH ×3 (08:28→17:00)
[2022-03-24] MEDS: NITROFURANTOIN/MONOHYDRATE MACROCRYSTALS 100 MG CAPSULE PO SCH ×2 (08:28→21:00)
[2022-03-24] MEDS: OLANZAPINE 2.5 MG TABLET PO SCH ×2 (08:29→21:16)
--- NOTE | 2022-03-24 10:14 | NUR ---
NICK Initial Discharge Plan: Pt lives at home [address], [place] [address]; ([phone]). Pt did not want to give any other information. SW will discuss treatment plan with MD and pt to help coordinate appropriate discharge.
--- NOTE | 2022-03-24 10:15 | NUR ---
NICK Clinical Note: Pt placed on a 5150 hold for GD. Pt was brought in because pt has been paranoid and suspicious at home. Pt lives at home [address], [place] [address]; ([phone]). Pt did not want to give any other information. NICK will discuss treatment plan with MD and pt to help coordinate appropriate discharge,
--- NOTE | 2022-03-24 10:15 | NUR ---
Treatment Plan: Pt refused to sign treatment plan and was suspicious. She stated "get out of here stupid".
--- NOTE | 2022-03-24 10:59 | NUR ---
RN-CO: Notified Dr Hough of patient's refusal to anti psychotic x 2days.
--- NOTE | 2022-03-24 15:20 | NUR ---
PT REFUSED VALPROIC ACID TEST . ENCOURAGE PT TO COMPLY STILL REFUSED .
[2022-03-24 16:00] VITALS: BP 100/57
[2022-03-24 19:35] VITALS: BP 108/58
--- NOTE | 2022-03-24 21:30 | NUR ---
RN NOTE PATIENT REFUSED SCHEDULED MEDS MACROBID AND ZYPREXA. DESPITE OF EXPLANATION THE IMPORTANCE OF MEDICATION COMPLIANCE BUT PATIENT STILL REFUSING. PATIENT IS ARGUMENTATIVE. PATIENT STATES "I DON'T HAVE INFECTION IN MY BLADDER". WILL CONTINUE TO MONITOR.
[2022-03-25] MEDS: LEVOTHYROXINE SODIUM 88 MCG TABLET PO SCH (07:30)
[2022-03-25] MEDS: PANTOPRAZOLE 40 MG TABLET.DR PO SCH (07:30)
[2022-03-25 08:00] VITALS: BP 120/68
[2022-03-25] MEDS: ENSURE ENLIVE 237 ML LIQUID (VANILLA) PO SCH ×3 (08:40→17:00)
[2022-03-25] MEDS: NITROFURANTOIN/MONOHYDRATE MACROCRYSTALS 100 MG CAPSULE PO SCH ×2 (08:40→21:00)
[2022-03-25] MEDS: DIVALPROEX SODIUM 125 MG CAP.SPRINK PO SCH ×3 (08:40→17:00)
[2022-03-25 16:01] VITALS: BP 114/61
[2022-03-25 20:56] VITALS: BP 115/64
[2022-03-25] MEDS: OLANZAPINE 2.5 MG TABLET PO SCH (21:21)
--- NOTE | 2022-03-26 06:31 | NUR ---
RN NOTE: UNABLE TO COLLECT URINE SPECIMEN AT THIS TIME. PATIENT STATES, "I WILL DO IT LATER". WILL ENDORSE TO DAY SHIFT FOR CONTINUITY OF CARE.
[2022-03-26] MEDS: LEVOTHYROXINE SODIUM 88 MCG TABLET PO SCH ×2 (07:30→08:27)
[2022-03-26] MEDS: PANTOPRAZOLE 40 MG TABLET.DR PO SCH ×2 (07:30→08:27)
[2022-03-26 08:00] VITALS: BP 109/63
[2022-03-26] MEDS: DIVALPROEX SODIUM 125 MG CAP.SPRINK PO SCH ×4 (08:27→17:00)
[2022-03-26] MEDS: ENSURE ENLIVE 237 ML LIQUID (VANILLA) PO SCH ×3 (08:27→17:00)
[2022-03-26] MEDS: NITROFURANTOIN/MONOHYDRATE MACROCRYSTALS 100 MG CAPSULE PO SCH ×3 (08:27→21:00)
[2022-03-26 16:00] VITALS: BP 126/72
--- NOTE | 2022-03-26 17:30 | NUR ---
NURSE NOTE: PT REFUSED MEDS DURING SHIFT. DID NOT TAKE ANY. STATED THAT SHE DOESN'T NEED THEM.
--- NOTE | 2022-03-26 17:55 | NUR ---
NURSE NOTE: PT INFORMED THAT DR ORDERED A URINE TEST. ATTEMPTED TO COLLECT URINE MULTIPLE TIMES DURING SHIFT. PT NOT COOPERATIVE. INFORMED PT ONCE AGAIN AT THIS TIME. SHE STATED THAT SHE WOULD DO IT. WILL ENDORSE TO PM SHIFT.
[2022-03-26 19:58] VITALS: BP 129/63
[2022-03-26] MEDS: OLANZAPINE 2.5 MG TABLET PO SCH ×2 (21:00→21:48)
--- NOTE | 2022-03-26 21:49 | NUR ---
RN NOTE; PATIENT REFUSED SCHEDULED MEDS DURING SHIFT.SAID SHE DON'T NEED IT.
--- NOTE | 2022-03-27 06:23 | NUR ---
RN NOTE; PATIENT REFUSED TO PROVIDE URINE.
[2022-03-27] MEDS: LEVOTHYROXINE SODIUM 88 MCG TABLET PO SCH (07:22)
[2022-03-27] MEDS: PANTOPRAZOLE 40 MG TABLET.DR PO SCH (07:30)
[2022-03-27 08:00] VITALS: BP 129/74
[2022-03-27] MEDS: NITROFURANTOIN/MONOHYDRATE MACROCRYSTALS 100 MG CAPSULE PO SCH ×2 (09:00→21:00)
[2022-03-27] MEDS: DIVALPROEX SODIUM 125 MG CAP.SPRINK PO SCH ×3 (09:00→17:00)
[2022-03-27] MEDS: ENSURE ENLIVE 237 ML LIQUID (VANILLA) PO SCH ×3 (09:00→17:26)
--- NOTE | 2022-03-27 10:10 | NUR ---
RN Notes: Received pt. awake in bed, suspicious and guarded upon approached. Pt. refused to eat breakfast and and said she can not eat the food that they are sending for her and provided a phone to talk to the dietitian. Pt.took the Synthroid meds and refused to take Macrobid, Depakote, Protonix and Ensure. Explained on the importance and offered 3x and said " I don't want it and I did not give authority to prescribe the antibiotics. Pt. is with an angry mood and isolates in the room. Encouraged to verbalize feelings and motivated to attend group activity. Needs attended and will continue to monitor for safety.
[2022-03-27] MEDS: OLANZAPINE 2.5 MG TABLET PO SCH ×2 (12:00→21:35)
[2022-03-27] MEDS: OLANZAPINE 10 MG VIAL IM PRN (12:51)
[2022-03-27 16:00] VITALS: BP 121/63
--- NOTE | 2022-03-27 19:30 | NUR ---
GPS RN NOTE, RECEIVED PATIENT AWAKE AND IN BED, NO S/S OR COMPLAINTS OF PAIN AT THIS TIME. PATIENT IS DISPLAYING NO S/S OF APPARENT DISTRESS AT THIS TIME. PATIENT BREATHING IS UNLABORED WITH EQUAL RISE AND FALL OF THE CHEST. PATIENT IS ALERT AND ORIENTED X 3 ON ROOM AIR WITH A SPO2 97%. PATIENT IS REFUSING MEDICATIONS, ANXIOUS, PARANOID, GUARDED, AND UNCOOPERATIVE. PATIENT DENIES SUICIDAL AND HOMICIDAL IDEATIONS AT THIS TIME. PATIENT ASSISTED WITH TURNING AND REPOSITIONING Q2HR AND PRN FOR COMFORT AND CIRCULATION. PATIENT HAS NO NEEDS AT THIS TIME. PATIENT EDUCATED ON THE USE OF THE CALL WILEY. PATIENT BED SIDE RAILS UP X 2 FOR SAFETY. PATIENT BED IS LOCKED, LOW, WITH BED ALARM ON. WILL CONTINUE TO MONITOR THIS PATIENT Q15 MINUTES WITH THE HELP OF STAFF TO MAINTAIN SAFETY.
[2022-03-27 19:50] VITALS: BP 119/59
--- NOTE | 2022-03-27 21:34 | NUR ---
GPS RN NOTE, PATIENT REFUSED MACROBID 100MG PO Q12HR. OFFERED MACROBID 3 TIMES AND STILL PATIENT REFUSED STATING, " NO I'M ALLERGIC TO THAT MEDICATION AND YOU CAN'T MAKE TAKE IT ". EDUCATED PATIENT ON THE RISKS AND BENEFITS OF TAKING AND REFUSING MACROBID. WILL CONTINUE TO MONITOR THIS PATIENT WITH THE HELP OF STAFF.
[2022-03-28] MEDS: LEVOTHYROXINE SODIUM 88 MCG TABLET PO SCH (07:30)
[2022-03-28] MEDS: PANTOPRAZOLE 40 MG TABLET.DR PO SCH (07:30)
[2022-03-28 08:00] VITALS: BP 117/67
[2022-03-28] MEDS: OLANZAPINE 2.5 MG TABLET PO SCH ×2 (08:17→21:28)
[2022-03-28] MEDS: NITROFURANTOIN/MONOHYDRATE MACROCRYSTALS 100 MG CAPSULE PO SCH ×2 (08:17→21:00)
[2022-03-28] MEDS: ENSURE ENLIVE 237 ML LIQUID (VANILLA) PO SCH ×3 (08:17→17:06)
[2022-03-28] MEDS: DIVALPROEX SODIUM 125 MG CAP.SPRINK PO SCH ×3 (08:17→17:00)
[2022-03-28] MEDS: OLANZAPINE 10 MG VIAL IM PRN (08:18)
--- NOTE | 2022-03-28 08:24 | NUR ---
GPS/RN PT REFUSED ALL AM MEDS. OFFERED X3.ZYPREXA 2.5MG IM GIVEN ORDERED
--- NOTE | 2022-03-28 13:10 | NUR ---
GPS/RN PT REFUSED DEPAKOTE PO OFFERED X3
[2022-03-28 16:00] VITALS: BP 111/67
[2022-03-28 20:00] VITALS: BP 127/64
[2022-03-29] MEDS: PANTOPRAZOLE 40 MG TABLET.DR PO SCH (07:28)
[2022-03-29] MEDS: LEVOTHYROXINE SODIUM 88 MCG TABLET PO SCH (07:28)
[2022-03-29 08:00] VITALS: BP 111/81
[2022-03-29] MEDS: OLANZAPINE 2.5 MG TABLET PO SCH ×2 (08:22→21:03)
[2022-03-29] MEDS: DIVALPROEX SODIUM 125 MG CAP.SPRINK PO SCH ×3 (08:22→17:00)
[2022-03-29] MEDS: NITROFURANTOIN/MONOHYDRATE MACROCRYSTALS 100 MG CAPSULE PO SCH (08:28)
[2022-03-29] MEDS: ENSURE ENLIVE 237 ML LIQUID (VANILLA) PO SCH ×3 (08:35→17:14)
--- NOTE | 2022-03-29 13:01 | NUR ---
GPS RN NOTE: PATIENT REFUSED HER DEPAKOTE SPRINKLE 125 MG, OFFERED X 3. EXPLAINED THE IMPORTANCE OF HER TAKING THE MEDICATION BUT PATIENT STILL REFUSED.
[2022-03-29 16:00] VITALS: BP 113/71
--- NOTE | 2022-03-29 17:00 | NUR ---
PATIENT REFUSED HER DEPAKOTE, TRIED TO OFFER X 3 AND EXPLAINED THE RISKS AND BENEFITS BUT PATIENT JUST SAID "NO"
--- NOTE | 2022-03-29 18:26 | NUR ---
GPS RN NOTE, PATIENT AWAKE, ALERT AND ORIENTED X 3. NO S/S OR COMPLAINTS OF PAIN OR DISCOMFORT AT THIS TIME. NO SOB NOTED, BREATHING EVEN AND UNLABORED. PATIENT IS NO ACUTE DISTRESS AT THIS TIME. PATIENT IS ANXIOUS, PARANOID, GUARDED, AND UNCOOPERATIVE. PATIENT DENIES SUICIDAL AND HOMICIDAL IDEATIONS AT THIS TIME. PATIENT ASSISTED WITH TURNING AND REPOSITIONING Q2HR AND PRN FOR COMFORT AND CIRCULATION. ALL NEEDS MET AND ANTICIPATED. PATIENT BED SIDE RAILS UP X 2 FOR SAFETY. PATIENT BED IS LOCKED, AND IN LOWEST POSITION WITH BED ALARM ON. WILL ENDORSE TO NEXT SHIFT NURSE FOR CONTINUITY OF CARE
[2022-03-29 20:00] VITALS: BP 109/58
--- NOTE | 2022-03-30 04:48 | NUR ---
GPS RN NOTES: ALERT AND ORIENTATED X3 NOTED WHEN I ASKED HER A QUESTION SHE RESPONDED WITH A QUESTION AFFECT IF FLAT STAYED ON HER ROOM THRU THE NIGHT NEVER SMILED POOR EYE CONTACT REFUSED THE ZYPREXIA WHEN 21:00 MEDICATION WAS GIVEN...USE REFUSED STATING "i'M ALLERGIC TO THAT MEDICATION". iNFORMED HER WAS NOT SHE HAD IT SEVERAL TIMES AND IF NOT TAKEN THE PILL i WOULD HAVE TO GIVE HERAN INJECTION...SHE TOOK THE PILL AND CLOSED HER EYES AND NEVER SPOKE TO ME HE REST OF THE NIGHT STAYED IN HER ROOM IN BED
[2022-03-30] MEDS: OLANZAPINE 2.5 MG TABLET PO SCH ×2 (07:43→21:15)
[2022-03-30] MEDS: LEVOTHYROXINE SODIUM 88 MCG TABLET PO SCH (07:43)
[2022-03-30] MEDS: DIVALPROEX SODIUM 125 MG CAP.SPRINK PO SCH ×4 (07:43→21:15)
[2022-03-30] MEDS: PANTOPRAZOLE 40 MG TABLET.DR PO SCH (07:43)
[2022-03-30] MEDS: ENSURE ENLIVE 237 ML LIQUID (VANILLA) PO SCH ×3 (07:45→17:19)
[2022-03-30 08:00] VITALS: BP 120/62
--- NOTE | 2022-03-30 13:00 | NUR ---
GPS/RN PT REFUSED DEPAKOTE OFFERED X3
[2022-03-30 16:00] VITALS: BP 108/62
--- NOTE | 2022-03-30 17:20 | NUR ---
GPS/RN PT REFUSED DEPAKOTE OFFERED X3
[2022-03-30 20:11] VITALS: BP 133/77
[2022-03-31 08:00] VITALS: BP 122/59
[2022-03-31] MEDS: DIVALPROEX SODIUM 125 MG CAP.SPRINK PO SCH ×2 (08:46→20:04)
[2022-03-31] MEDS: OLANZAPINE 2.5 MG TABLET PO SCH ×2 (08:46→20:04)
[2022-03-31] MEDS: PANTOPRAZOLE 40 MG TABLET.DR PO SCH (08:47)
[2022-03-31] MEDS: ENSURE ENLIVE 237 ML LIQUID (VANILLA) PO SCH ×3 (08:47→17:53)
[2022-03-31] MEDS: LEVOTHYROXINE SODIUM 88 MCG TABLET PO SCH (08:47)
--- NOTE | 2022-03-31 10:28 | NUR ---
SW Note: Pt shared with this magnetic tape typewriter operator that her caregiver quit and that she currently does not have a caregiver. Pt appeared to be understanding of her situation. She was agreeable of this pt to find her a placement, however, later during the conversation she changed her mind. Pt requires to be stabilized before making a decision.
--- NOTE | 2022-03-31 12:07 | NUR ---
SNF Referral: NICK sent clinicals to Tim Rodriguez from [facility] ([phone]) for placement. SW sent H & P, progress notes, and medication list.
[2022-03-31 16:00] VITALS: BP 113/67
[2022-03-31 19:42] VITALS: BP 111/63
--- NOTE | 2022-04-01 07:25 | NUR ---
gps rn opening note pt awake, alert and oriented x2-3. no signs of pain or discomfort at this time. pt is in no acute distress at this time. pt is anxious, uncooperative. pt denies SUICIDAL AND HOMICIDAL IDEATIONS AT THIS TIME PATIENT BED SIDE RAILS UP X 2 FOR SAFETY. PATIENT BED IS LOCKED, AND IN LOWEST POSITION WITH BED ALARM ON.
[2022-04-01] MEDS: LEVOTHYROXINE SODIUM 88 MCG TABLET PO SCH ×2 (07:30→09:41)
[2022-04-01] MEDS: PANTOPRAZOLE 40 MG TABLET.DR PO SCH ×2 (07:30→09:41)
[2022-04-01 08:00] VITALS: BP 121/66
[2022-04-01] MEDS: DIVALPROEX SODIUM 125 MG CAP.SPRINK PO SCH ×3 (09:00→21:03)
[2022-04-01] MEDS: OLANZAPINE 2.5 MG TABLET PO SCH ×4 (09:00→21:03)
[2022-04-01] MEDS: OLANZAPINE 10 MG VIAL IM PRN (10:53)
[2022-04-01] MEDS: ENSURE ENLIVE 237 ML LIQUID (VANILLA) PO SCH ×3 (10:54→17:00)
--- NOTE | 2022-04-01 11:18 | NUR ---
rn note pulled out zyprexa im from [facility]. withdrew it in syringe. pt refused im shot, gave zyprexa po tablet. discarded it medication waste container Zyprexa IM not given. wasted it in waste container
--- NOTE | 2022-04-01 12:16 | NUR ---
SNF Contact: SW spoke with Tim Rodriguez from [facility] ([phone]) who stated pt is accepted.
[2022-04-01 15:55] VITALS: BP 108/60
--- NOTE | 2022-04-01 19:11 | NUR ---
gps rn closing note pt awake, alert and oriented x2-3. pt is in bed. no signs of pain or discomfort noted at this time. no significant changes throughout shift.all safety measures in place. endorsed to [employer] rn for contiuity of care.
[2022-04-01 19:56] VITALS: BP 123/70
[2022-04-02 08:00] VITALS: BP 111/61
[2022-04-02] MEDS: DIVALPROEX SODIUM 125 MG CAP.SPRINK PO SCH ×2 (08:05→21:00)
[2022-04-02] MEDS: LEVOTHYROXINE SODIUM 88 MCG TABLET PO SCH (08:05)
[2022-04-02] MEDS: OLANZAPINE 2.5 MG TABLET PO SCH ×2 (08:05→22:17)
[2022-04-02] MEDS: PANTOPRAZOLE 40 MG TABLET.DR PO SCH (08:05)
[2022-04-02] MEDS: ENSURE ENLIVE 237 ML LIQUID (VANILLA) PO SCH ×3 (08:06→17:58)
[2022-04-02 16:00] VITALS: BP 100/58
[2022-04-02 19:45] VITALS: BP 120/63
[2022-04-02 20:00] VITALS: BP 111/61
[2022-04-02 20:01] VITALS: BP 115/75
[2022-04-03] MEDS: PANTOPRAZOLE 40 MG TABLET.DR PO SCH (07:30)
[2022-04-03] MEDS: LEVOTHYROXINE SODIUM 88 MCG TABLET PO SCH (07:30)
[2022-04-03 08:00] VITALS: BP 118/66
[2022-04-03] MEDS: DIVALPROEX SODIUM 125 MG CAP.SPRINK PO SCH ×2 (08:58→20:21)
[2022-04-03] MEDS: OLANZAPINE 2.5 MG TABLET PO SCH ×2 (08:58→20:21)
[2022-04-03] MEDS: ENSURE ENLIVE 237 ML LIQUID (VANILLA) PO SCH ×3 (09:08→17:08)
[2022-04-03 16:00] VITALS: BP 115/69
--- NOTE | 2022-04-03 18:25 | NUR ---
RN-NOTES PATIENT ISOLATIVE IN HER ROOM LYING IN BED A/OX3.GUARDED,CALM NO ACUTE DISTRESS NOTED.DENIES SI/HI/AVH AT THIS TIME.NOTED WITH GUARDED, ARGUMENTATIVE AND EASILY ANGRY BEHAVIOR.SELECTIVE WITH MEDICATIONS. AMBULATORY TO THE BATHROOM WITH STEADY GAIT.ALL NEEDS ATTENDED AND ANTICIPATED. WILL CONTINUE TO MONITOR FOR SAFETY AND BEHAVIOR. WILL ENDORSE TO INCOMING NURSE FOR CONTINUITY OF CARE.
--- NOTE | 2022-04-03 19:54 | NUR ---
RN NOTES: PATIENT RESTING IN HER ROOM ,NO S/SX OF ACUTE DISTRESS NOTED. REFUSED TO ANSWER QUESTIONS, EASILY AGITATED, DISORGANIZED,GUARDED PARANOID,ANXIOUS ,NEEDY, POOR JUDGEMENT INSIGHT AND IMPULSE CONTROL, NEEDS FREQUENT REDIRECTION, ALL NEEDS ATTENDED AND ANTICIPATED, DENIES SI/HI AT THIS TIME.ENCOURAGE TO VERBALIZED ANY FEELING OR CONCERN, SAFETY MEASURES IN PLACE. WILL CONTINUE TO MONITOR .
[2022-04-03 20:00] VITALS: BP 124/72
[2022-04-04] MEDS: PANTOPRAZOLE 40 MG TABLET.DR PO SCH (07:30)
[2022-04-04 08:00] VITALS: BP 126/79
[2022-04-04] MEDS: ENSURE ENLIVE 237 ML LIQUID (VANILLA) PO SCH ×2 (08:28→12:55)
[2022-04-04] MEDS: LEVOTHYROXINE SODIUM 88 MCG TABLET PO SCH (08:29)
[2022-04-04] MEDS: DIVALPROEX SODIUM 125 MG CAP.SPRINK PO SCH (08:29)
[2022-04-04] MEDS: OLANZAPINE 2.5 MG TABLET PO SCH (08:29)
--- NOTE | 2022-04-04 08:44 | NUR ---
SW Discharge Note: Patient will be discharged to jail facility [facility] [address] [address], [place] [address]; ). Please arrange transportation at 1PM. Seam Hammerer spoke with Tim oil derrick operator at [facility]; ([phone]), who stated patient will be accepted today. Patient does not have any family to contact. Patient is alert and oriented x2 and is unable to plan for self-care. Patient denies any suicidal or homicidal ideations. Patient is aware and agreeable with discharge plans. Patient will continue to follow-up with (psychiatrist) Dr. Hough [address], [place] [address]; ([phone]) and (national sales representative) Dr. Luna [address], [place] [address]; ([phone]). Patient presents with euthymic and congruent mood.
--- NOTE | 2022-04-04 08:55 | NUR ---
Dr. Hough gave an order to D/C hold and D/C to [facility] and to follow up with psych and medical doctors. Dr. Hough reconciled on meds to continue in the facility.
--- NOTE | 2022-04-04 12:24 | NUR ---
GPS/RN MESSAGE LEFT WITH FACILITY TO CALL BACK TO THE UNIT FOR REPORT NURSING STATION NOT ANSWERING
--- NOTE | 2022-04-04 13:30 | NUR ---
GPS/RN PT LEFT VIA AMBULANCE TO [facility]. REPORT GIVEN TO KAMILLA AT THE FACILITY . NO SI OR HI AT THE TIME OF DISCHARGE. PROPERTY RETURNED. VSS. PT IS AMBULATORY. EXIT CARE INSTRUCTIONS AND MEDS LIST GIVEN AND UNDERSTOOD.
== END 2022-04-04 13:30 | DRG 885 ==
LOC: GPS 15:57
PROVIDERS: ADMIT Nurse Practitioner Psychiatric/Mental Health; ATTEND Registered Nurse
DX: F31.9 Bipolar disorder, unspecified (principal); N39.0 Urinary tract infection, site not specified; E44.0 Moderate protein-calorie malnutrition; Z68.1 Body mass index [BMI] 19.9 or less, adult; R62.7 Adult failure to thrive; F60.3 Borderline personality disorder; G31.84 Mild cognitive impairment of uncertain or unknown etiology; Z73.6 Limitation of activities due to disability; E87.6 Hypokalemia; B96.89 Other specified bacterial agents as the cause of diseases classified elsewhere; E03.9 Hypothyroidism, unspecified; Z90.49 Acquired absence of other specified parts of digestive tract; F22 Delusional disorders; Z91.14 Patient's other noncompliance with medication regimen; Z91.199 Patient's noncompliance with other medical treatment and regimen due to unspecified reason; Z86.59 Personal history of other mental and behavioral disorders; Z88.6 Allergy status to analgesic agent; Z88.1 Allergy status to other antibiotic agents; Z91.040 Latex allergy status; Z88.5 Allergy status to narcotic agent; Z88.2 Allergy status to sulfonamides; Z88.8 Allergy status to other drugs, medicaments and biological substances; Z91.018 Allergy to other foods; Z91.048 Other nonmedicinal substance allergy status; Z91.09 Other allergy status, other than to drugs and biological substances; Z79.899 Other long term (current) drug therapy; F43.10 Post-traumatic stress disorder, unspecified; Z88.0 Allergy status to penicillin
CPT/HCPCS: 36415; 80053-TC; 80061-TC; 82962-TC; 83735-TC; 84100-TC; 85025-TC; 87081-TC; J3490

== ENCOUNTER 2023-06-01 12:13 | Inpatient (IN) | payer MEDICARE, OTHER ==
[~2023-06-01] VITALS: Ht 152.4 cm; Wt 81.6 kg
[~2023-06-01 12:13] MED LIST changes: +ACET325T53 PO; -ALLA266C2 TP; +DIVA125C2 PO; -HEPA50008 SQ; +LACT-246 PO; +LEVO88TA2 PO; -LEVO88TA5 PO; +MAG30ORA PO; +MAGN400O6 PO; +NITR100C6 PO; -ONDA4TAB5 PO
[2023-06-01 13:45] LABS: BASOPHILS % (AUTO) 0.3 % (0.0-2.0); EOSINOPHILS % (AUTO) 0.4 % (0.0-6.0); HEMATOCRIT 45 % (33-45); LYMPHOCYTES # (AUTO) 1.5 K/uL (0.8-4.8); MEAN CORPUSCULAR HEMOGLOBIN 30 PG (26.0-33.0); MEAN CORPUSCULAR HGB CONC 34 g/dl (31.0-36.0); MEAN CORPUSCULAR VOLUME 89 fL (82-100); MONOCYTES # (AUTO) 0.5 K/uL (0.1-1.30); MONOCYTES % (AUTO) 6.3 % (2.0-12.0); NEUTROPHILS # (AUTO) 6.5 K/uL (1.8-8.9); PLATELET COUNT (AUTO) 237 K/uL (150-450); RED BLOOD CELL COUNT(AUTO) 5.03 MIL/uL (4.0-5.2); RED CELL DISTRIBUTION WIDTH 14.4 % (11.5-15.0); WHITE BLOOD COUNT (AUTO) 8.6 K/uL (4.3-11.0)
[2023-06-01 13:55] LABS: APPEARANCE,URINE SLIGHTLY CLOUDY (CLEAR); BILIRUBIN,URINE NEGATIVE (NEGATIVE); BLOOD, URINE NEGATIVE Ery/uL (NEGATIVE); COLOR,URINE DARK YELLOW (YELLOW); KETONES,URINE TRACE mg/dL (NEGATIVE); LEUKOCYTE ESTERASE ,URINE NEGATIVE (NEGATIVE); NITRITE, URINE NEGATIVE (NEGATIVE); PROTEIN,URINE TRACE mg/dl (NEGATIVE); UGLUCOSE NEGATIVE (NEGATIVE); UROBILINOGEN,URINE 0.2 EU/dL (0.2)
[2023-06-01 13:57] LABS: INR 0.95 (0.91-1.10); PARTIAL THROMBOPLASTIN TIME 22.3 SEC (24.3-34.3); PROTHROMBIN TIME 10.1 SECS (9.2-11.1)
[2023-06-01 14:08] LABS: CALCIUM, SERUM 9.5 mg/dL (8.5-10.1); CARBON DIOXIDE 28 mmol/L (21-32); CHLORIDE 100 mmol/L (98-107); GLUCOSE 108 mg/dL (74-106); POTASSIUM 4.9 mmol/L (3.5-5.1); SODIUM SERUM 138 mmol/L (136-145); UREA NITROGEN, BLOOD 22 mg/dL (7-18)
[2023-06-01] MEDS ORDERED: OMEG-88 PO (14:10)
[2023-06-01] MEDS ORDERED: MAG-5 PO (14:10)
[2023-06-01] MEDS ORDERED: CETI10TA14 PO (14:10)
[2023-06-01] MEDS ORDERED: TEMA15CA PO (14:10)
[2023-06-01] MEDS ORDERED: CHOL100043 PO (14:10)
[2023-06-01] MEDS ORDERED: LORA2TAB95 PO (14:10)
[2023-06-01] MEDS ORDERED: CITRACAL+D PO (14:10)
[2023-06-01] MEDS ORDERED: GUAI-970 PO (14:10)
[2023-06-01] MEDS ORDERED: ACET-2605 PO (14:10)
[2023-06-01] MEDS ORDERED: OMEP20CA15 PO (14:10)
[2023-06-01] MEDS ORDERED: IBUP-1955 PO (14:10)
[2023-06-01] MEDS ORDERED: MELA1TAB17 PO (14:10)
[2023-06-01] MEDS ORDERED: GABA-536 PO (14:10)
[2023-06-01] MEDS ORDERED: LIDO1ADH82 TP (14:10)
[2023-06-01] MEDS ORDERED: LEVO100T PO (14:10)
[2023-06-01] MEDS ORDERED: MAGN400O6 PO (14:10)
[2023-06-01] MEDS ORDERED: CRAN400C PO (14:10)
[2023-06-01] MEDS ORDERED: DOCU100C36 PO (14:10)
[2023-06-01] MEDS ORDERED: DIVA-76 PO (14:10)
[2023-06-01] MEDS ORDERED: OLAN10TA3 PO (14:10)
[2023-06-01 14:13] LABS: ALANINE AMINOTRANSFERASE 28 U/L (12-78); ALBUMIN 3.7 g/dL (3.4-5.0); ALKALINE PHOSPHATASE 90 U/L (46-116); ASPARTATE AMINOTRANSFERASE 20 U/L (15-37); BILIRUBIN,DIRECT 0.1 mg/dL (0.0-0.2); BILIRUBIN,TOTAL 0.2 mg/dL (0.2-1.0); TOTAL PROTEIN, SERUM 7.5 g/dL (6.4-8.2)
[2023-06-01 14:30] LABS: LACTIC ACID 3.6 mmol/L (0.4-2.0)
[2023-06-01] MEDS ORDERED: METRONIDAZOLE 500MG/ NS 100ML 100 ML IV ONE (16:13)
[2023-06-01] MEDS: METRONIDAZOLE 500MG/ NS 100ML 100 ML IV ONE (16:21)
[2023-06-01] MEDS ORDERED: MAG HYDROX/AL HYDROX/SIMETH 30 ML UDC PO PRN ×2 (16:30)
[2023-06-01] MEDS ORDERED: MAGNESIUM HYDROXIDE 30 ML UDC PO PRN ×2 (16:30)
[2023-06-01] MEDS ORDERED: Z GUARD REMEDY 4 OZ OINT TP PRN (16:30)
[2023-06-01] MEDS ORDERED: ONDANSETRON HCL/PF 4 MG/2 ML VIAL IVP PRN (16:30)
[2023-06-01] MEDS: IV NS 0.9% 1,000 ML BAG IV ONE (17:38)
[2023-06-01] MEDS: DIVALPROEX SODIUM 250 MG TABLET.DR PO SCH (17:42)
[2023-06-01] MEDS: CHOLECALCIFEROL (VITAMIN D 3) 400 UNIT TABLET PO SCH (17:42)
[2023-06-01] MEDS: GABAPENTIN 400 MG CAPSULE PO SCH (17:42)
[2023-06-01] MEDS: OLANZAPINE 10 MG TABLET PO SCH (17:42)
[2023-06-01] MEDS: VANCOMYCIN 1 GM in IV D5W 250 ML IV ONE (17:53)
[2023-06-01 19:59] VITALS: O2SAT 88
[2023-06-01 20:00] VITALS: BP 147/60; TEMP 97.5; O2SAT 97
[2023-06-01] MEDS: IV NS 0.9% 1,000 ML IV PRN (20:31)
[2023-06-01] MEDS: ACETAMINOPHEN 325 MG TABLET PO PRN (21:00)
[2023-06-01] MEDS: IBUPROFEN 600 MG TABLET PO PRN (21:00)
[2023-06-01] MEDS: LORAZEPAM 1 MG TABLET PO PRN (21:00)
[2023-06-01] MEDS: METRONIDAZOLE 500MG/ NS 100ML 500 MG in PREMIX 1 EA IV SCH (21:37)
[2023-06-01] MEDS: cetrizine 10 MG TABLET PO SCH (22:11)
[2023-06-01] MEDS: TEMAZEPAM 15 MG CAPSULE PO PRN (23:12)
[2023-06-02 07:22] LABS: BASOPHILS % (AUTO) 0.6 % (0.0-2.0); EOSINOPHILS # (AUTO) 0.2 K/uL (0.0-0.7); EOSINOPHILS % (AUTO) 2.5 % (0.0-6.0); HEMATOCRIT 39 % (33-45); HEMOGLOBIN 13.2 g/dL (11.5-14.8); LYMPHOCYTES # (AUTO) 2.3 K/uL (0.8-4.8); LYMPHOCYTES % (AUTO) 34.8 % (20.0-44.0); MEAN CORPUSCULAR HEMOGLOBIN 30 PG (26.0-33.0); MEAN CORPUSCULAR HGB CONC 33 g/dl (31.0-36.0); MEAN CORPUSCULAR VOLUME 89 fL (82-100); MONOCYTES # (AUTO) 0.7 K/uL (0.1-1.30); MONOCYTES % (AUTO) 10.1 % (2.0-12.0); NEUTROPHILS # (AUTO) 3.4 K/uL (1.8-8.9); PLATELET COUNT (AUTO) 215 K/uL (150-450); RED BLOOD CELL COUNT(AUTO) 4.44 MIL/uL (4.0-5.2); RED CELL DISTRIBUTION WIDTH 13.9 % (11.5-15.0); WHITE BLOOD COUNT (AUTO) 6.5 K/uL (4.3-11.0)
[2023-06-02 07:51] LABS: THYROID STIMULATING HORMONE 4.595 uIU/mL (0.358-3.74)
[2023-06-02 08:00] VITALS: BP 130/83; TEMP 98.4; O2SAT 96
[2023-06-02 08:01] LABS: GLUCOSE 98 mg/dL (74-106); SODIUM SERUM 140 mmol/L (136-145)
[2023-06-02 08:04] LABS: CALCIUM, SERUM 8.6 mg/dL (8.5-10.1); CARBON DIOXIDE 27 mmol/L (21-32); CHLORIDE 104 mmol/L (98-107); CREATININE 0.8 mg/dL (0.6-1.3); MAGNESIUM 2.1 mg/dL (1.8-2.4); PHOSPHORUS 4.4 mg/dL (2.5-4.9); POTASSIUM 4.1 mmol/L (3.5-5.1); UREA NITROGEN, BLOOD 23 mg/dL (7-18)
[2023-06-02] MEDS: LEVOFLOXACIN 500 MG /D5W 100ML 500 MG in PREMIX 1 EA IV SCH (09:00)
[2023-06-02] MEDS: PANTOPRAZOLE 40 MG TABLET.DR PO SCH (09:02)
[2023-06-02] MEDS: DOCUSATE SODIUM 100 MG CAPSULE PO SCH (09:02)
[2023-06-02] MEDS: LEVOTHYROXINE SODIUM 100 MCG TABLET PO SCH (09:03)
[2023-06-02 16:00] VITALS: BP 134/76; TEMP 98.6; O2SAT 96
[2023-06-02] MEDS: VANCOMYCIN 1 GM in IV D5W 250 ML IV SCH (17:17)
[2023-06-02 20:56] VITALS: BP 128/64; TEMP 99; O2SAT 96
[2023-06-03 03:15] VITALS: O2SAT 99
[2023-06-03 07:00] VITALS: BP 147/100; TEMP 97.3; O2SAT 98
[2023-06-03 07:46] LABS: BASOPHILS % (AUTO) 0.7 % (0.0-2.0); EOSINOPHILS # (AUTO) 0.2 K/uL (0.0-0.7); EOSINOPHILS % (AUTO) 2.5 % (0.0-6.0); HEMATOCRIT 39 % (33-45); HEMOGLOBIN 13.3 g/dL (11.5-14.8); LYMPHOCYTES # (AUTO) 1.9 K/uL (0.8-4.8); LYMPHOCYTES % (AUTO) 27.4 % (20.0-44.0); MEAN CORPUSCULAR HEMOGLOBIN 30 PG (26.0-33.0); MEAN CORPUSCULAR HGB CONC 34 g/dl (31.0-36.0); MEAN CORPUSCULAR VOLUME 88 fL (82-100); MONOCYTES # (AUTO) 0.6 K/uL (0.1-1.30); MONOCYTES % (AUTO) 9.2 % (2.0-12.0); NEUTROPHILS # (AUTO) 4.1 K/uL (1.8-8.9); NEUTROPHILS % (AUTO) 60.2 % (43.0-81.0); PLATELET COUNT (AUTO) 210 K/uL (150-450); RED BLOOD CELL COUNT(AUTO) 4.47 MIL/uL (4.0-5.2); RED CELL DISTRIBUTION WIDTH 13.8 % (11.5-15.0); WHITE BLOOD COUNT (AUTO) 6.8 K/uL (4.3-11.0)
[2023-06-03 08:04] LABS: CALCIUM, SERUM 8.5 mg/dL (8.5-10.1); MAGNESIUM 2.1 mg/dL (1.8-2.4); PHOSPHORUS 4.3 mg/dL (2.5-4.9); POTASSIUM 4.2 mmol/L (3.5-5.1)
[2023-06-03] MEDS: TRAMADOL HCL 50 MG TABLET PO PRN (14:48)
[2023-06-03 14:57] VITALS: BP 147/100; TEMP 97.3; O2SAT 98
[2023-06-03 16:00] VITALS: BP 149/74; TEMP 98.4; O2SAT 98
[2023-06-04 08:09] LABS: CALCIUM, SERUM 8.8 mg/dL (8.5-10.1); CREATININE 0.9 mg/dL (0.6-1.3); POTASSIUM 4.2 mmol/L (3.5-5.1)
[2023-06-04 08:21] VITALS: BP 131/90; TEMP 98.4; O2SAT 94
[2023-06-04] MEDS: MUPIROCIN OINT 2% 22 GM TUBE NS SCH (10:33)
== END 2023-06-04 16:18 | DRG 640 ==
LOC: ER 12:15 → MED 17:04
PROVIDERS: ADMIT Nurse Practitioner Acute Care; ATTEND Internal Medicine
DX: E86.0 Dehydration (principal); G93.41 Metabolic encephalopathy; R65.10 Systemic inflammatory response syndrome (SIRS) of non-infectious origin without acute organ dysfunction; E87.20 Acidosis, unspecified; Z85.9 Personal history of malignant neoplasm, unspecified; E89.0 Postprocedural hypothyroidism; Z88.1 Allergy status to other antibiotic agents; Z91.040 Latex allergy status; Z88.5 Allergy status to narcotic agent; Z88.0 Allergy status to penicillin; Z88.2 Allergy status to sulfonamides; Z88.8 Allergy status to other drugs, medicaments and biological substances; Z91.018 Allergy to other foods; Z91.048 Other nonmedicinal substance allergy status; Z79.890 Hormone replacement therapy; E66.9 Obesity, unspecified; Z68.32 Body mass index [BMI] 32.0-32.9, adult; F32.A Depression, unspecified; Z79.899 Other long term (current) drug therapy; R79.89 Other specified abnormal findings of blood chemistry; R82.4 Acetonuria; F43.10 Post-traumatic stress disorder, unspecified; F41.9 Anxiety disorder, unspecified; Z86.59 Personal history of other mental and behavioral disorders; F29 Unspecified psychosis not due to a substance or known physiological condition; Z88.6 Allergy status to analgesic agent; Z91.199 Patient's noncompliance with other medical treatment and regimen due to unspecified reason; Z91.148 Patient's other noncompliance with medication regimen for other reason
CPT/HCPCS: 36415; 71045-TC; 80048-TC; 80076-TC; 83605-TC; 83735-TC; 84100-TC; 84443-TC; 84484-TC; 85025-TC; 85730-TC; 87040-TC; 87081-TC; 87086-TC; 97110-TC; 97116-TC; 97530-TC; A4216; A4223; G0378; J1956; J3370; J7030; J7060

== ENCOUNTER 2023-08-12 15:25 | Inpatient (IN) | payer MEDICARE, OTHER ==
[~2023-08-12] VITALS: Ht 152.4 cm; Wt 79.8 kg
[~2023-08-12 15:25] MED LIST changes: +ACET-2605 PO; -ACET325T53 PO; +CETI10TA14 PO; +CHOL100043 PO; +CITRACAL+D PO; +CRAN400C PO; +DIVA-76 PO; -DIVA125C2 PO; +DOCU100C36 PO; +GABA-536 PO; +GUAI-970 PO; +IBUP-1955 PO; -LACT-246 PO; +LEVO100T PO; -LEVO88TA2 PO; +LIDO1ADH82 TP; +LORA2TAB95 PO; +MAG-5 PO; -MAG30ORA PO; +MELA1TAB17 PO; -NITR100C6 PO; +OLAN10TA3 PO; +OMEG-88 PO; +OMEP20CA15 PO; -PANT40TA2 PO; +TEMA15CA PO
[2023-08-12 16:05] LABS: BASOPHILS % (AUTO) 0.5 % (0.0-2.0); EOSINOPHILS # (AUTO) 0.1 K/uL (0.0-0.7); EOSINOPHILS % (AUTO) 1.5 % (0.0-6.0); HEMATOCRIT 44 % (33-45); HEMOGLOBIN 14.6 g/dL (11.5-14.8); LYMPHOCYTES # (AUTO) 2.1 K/uL (0.8-4.8); MEAN CORPUSCULAR HEMOGLOBIN 29 PG (26.0-33.0); MEAN CORPUSCULAR HGB CONC 33 g/dl (31.0-36.0); MEAN CORPUSCULAR VOLUME 88 fL (82-100); MONOCYTES # (AUTO) 0.6 K/uL (0.1-1.30); NEUTROPHILS # (AUTO) 4.6 K/uL (1.8-8.9); PLATELET COUNT (AUTO) 246 K/uL (150-450); RED BLOOD CELL COUNT(AUTO) 5.03 MIL/uL (4.0-5.2); RED CELL DISTRIBUTION WIDTH 14.4 % (11.5-15.0); WHITE BLOOD COUNT (AUTO) 7.4 K/uL (4.3-11.0)
[2023-08-12 16:18] LABS: CALCIUM, SERUM 8.7 mg/dL (8.5-10.1); CREATININE 0.9 mg/dL (0.6-1.3); POTASSIUM 4.2 mmol/L (3.5-5.1)
[2023-08-12 16:18] LABS: APPEARANCE,URINE Clear (CLEAR); BILIRUBIN,URINE Negative (NEGATIVE); BLOOD, URINE Trace-lysed Ery/uL (NEGATIVE); COLOR,URINE YELLOW (YELLOW); KETONES,URINE Negative (NEGATIVE); LEUKOCYTE ESTERASE ,URINE Trace (NEGATIVE); NITRITE, URINE Negative (NEGATIVE); PROTEIN,URINE Negative (NEGATIVE); UGLUCOSE Negative (NEGATIVE); UROBILINOGEN,URINE 0.2 EU/dL (0.2)
[2023-08-12 16:20] LABS: ADD URINE CULTURE NO; BACTERIA,URINE Rare /HPF (None Seen); RBC,URINE 0-2 /HPF (0-2); WBC,URINE 0-2 /HPF (0-3)
[2023-08-12 16:21] LABS: SQUAMOUS EPITHELIAL CELL,UR Few /HPF (None Seen)
[2023-08-12] MEDS ORDERED: MELA5TAB PO (17:00)
[2023-08-12] MEDS ORDERED: PYRI100T22 PO (17:00)
[2023-08-12] MEDS ORDERED: EPIN0.3A4 IM (17:00)
[2023-08-12] MEDS ORDERED: ERGO500093 PO (17:00)
[2023-08-12] MEDS ORDERED: DICL100G34 TP (17:00)
[2023-08-12] MEDS ORDERED: PHEN-894 PO (17:00)
[2023-08-12] MEDS ORDERED: VANCOMYCIN HCL 1.25 GM in IV D5W 260 ML IV ONE (17:00)
[2023-08-12] MEDS ORDERED: TIZA4TAB5 PO (17:00)
[2023-08-12] MEDS ORDERED: IBUP-1957 PO (17:00)
[2023-08-12] MEDS ORDERED: CRAN400T3 PO (17:00)
[2023-08-12] MEDS ORDERED: LORA-259 PO (17:00)
[2023-08-12] MEDS ORDERED: SODI45SP6 BNOSTRILS (17:00)
[2023-08-12] MEDS ORDERED: OMEG-162 PO (17:00)
[2023-08-12] MEDS: VANCOMYCIN HCL 1.25 GM in IV D5W 250 ML IV ONE (17:37)
[2023-08-12] MEDS ORDERED: Z GUARD REMEDY 4 OZ OINT TP PRN (18:00)
[2023-08-12] MEDS ORDERED: MAG HYDROX/AL HYDROX/SIMETH 30 ML UDC PO PRN ×2 (18:00)
[2023-08-12] MEDS ORDERED: TIZANIDINE HCL 4 MG TABLET PO PRN (18:00)
[2023-08-12] MEDS ORDERED: DICLOFENAC TOPICAL 100 GM TUBE TP PRN (18:00)
[2023-08-12] MEDS ORDERED: ONDANSETRON HCL/PF 4 MG/2 ML VIAL IVP PRN (18:00)
[2023-08-12] MEDS ORDERED: MAGNESIUM HYDROXIDE 30 ML UDC PO PRN ×2 (18:00)
[2023-08-12] MEDS ORDERED: ZOLPIDEM TARTRATE 5 MG TABLET PO PRN (18:00)
[2023-08-12] MEDS ORDERED: NITROFURANTOIN/MONOHYDRATE MACROCRYSTALS 100 MG CAPSULE ONE (21:37)
[2023-08-12] MEDS: NITROFURANTOIN/MONOHYDRATE MACROCRYSTALS 100 MG CAPSULE PO SCH (21:38)
[2023-08-12] MEDS ORDERED: Medication Not On Formulary EA (Melatonin 5 MG) PO SCH (22:00)
[2023-08-12 22:35] VITALS: BP 145/93; TEMP 98.2; O2SAT 95
[2023-08-12] MEDS: IV NS 0.9% 1,000 ML IV ONE (23:21)
[2023-08-12] MEDS: TEMAZEPAM 15 MG CAPSULE PO PRN (23:29)
[2023-08-12 23:30] VITALS: BP 145/93; TEMP 98.2; O2SAT 95
[2023-08-13] MEDS: LORAZEPAM 1 MG TABLET PO PRN (00:38)
[2023-08-13 06:47] LABS: BASOPHILS % (AUTO) 0.3 % (0.0-2.0); EOSINOPHILS # (AUTO) 0.1 K/uL (0.0-0.7); EOSINOPHILS % (AUTO) 1.8 % (0.0-6.0); HEMATOCRIT 42 % (33-45); HEMOGLOBIN 13.9 g/dL (11.5-14.8); LYMPHOCYTES # (AUTO) 1.8 K/uL (0.8-4.8); LYMPHOCYTES % (AUTO) 23.4 % (20.0-44.0); MEAN CORPUSCULAR HEMOGLOBIN 30 PG (26.0-33.0); MEAN CORPUSCULAR HGB CONC 33 g/dl (31.0-36.0); MEAN CORPUSCULAR VOLUME 89 fL (82-100); MONOCYTES # (AUTO) 0.7 K/uL (0.1-1.30); MONOCYTES % (AUTO) 8.7 % (2.0-12.0); NEUTROPHILS # (AUTO) 5.2 K/uL (1.8-8.9); NEUTROPHILS % (AUTO) 65.8 % (43.0-81.0); PLATELET COUNT (AUTO) 83 K/uL (150-450); RED BLOOD CELL COUNT(AUTO) 4.67 MIL/uL (4.0-5.2); RED CELL DISTRIBUTION WIDTH 14.4 % (11.5-15.0); WHITE BLOOD COUNT (AUTO) 7.9 K/uL (4.3-11.0)
[2023-08-13 07:08] LABS: CALCIUM, SERUM 8.5 mg/dL (8.5-10.1); CARBON DIOXIDE 24 mmol/L (21-32); CHLORIDE 104 mmol/L (98-107); CREATININE 0.9 mg/dL (0.6-1.3); GLUCOSE 87 mg/dL (74-106); PHOSPHORUS 3.9 mg/dL (2.5-4.9); POTASSIUM 4.2 mmol/L (3.5-5.1); SODIUM SERUM 138 mmol/L (136-145); UREA NITROGEN, BLOOD 18 mg/dL (7-18)
[2023-08-13] MEDS: LEVOTHYROXINE SODIUM 100 MCG TABLET PO SCH (07:38)
[2023-08-13] MEDS ORDERED: Medication Not On Formulary EA (Omega-3/Dha/Epa/Fish Oil (Fish Oil 1,000 Mg Softgel) 1 E PO SCH (09:00)
[2023-08-13] MEDS ORDERED: Medication Not On Formulary EA (Cranberry Fruit (Cranberry) 450 MG) PO SCH (09:00)
[2023-08-13 09:34] VITALS: BP 160/94; TEMP 98.8; O2SAT 92
[2023-08-13] MEDS: GABAPENTIN 400 MG CAPSULE PO SCH (09:54)
[2023-08-13] MEDS: OLANZAPINE 10 MG TABLET PO SCH (09:54)
[2023-08-13] MEDS: DIVALPROEX SODIUM 250 MG TABLET.DR PO SCH (09:54)
[2023-08-13] MEDS ORDERED: NITR100C15 PO (10:59)
[2023-08-13] MEDS ORDERED: PHEN-704 PO (10:59)
[2023-08-13] MEDS: ACETAMINOPHEN 325 MG TABLET PO PRN (11:38)
[2023-08-13 11:52] LABS: PLATELET ESTIMATE DECREASED
[2023-08-13 16:00] VITALS: BP 135/100; TEMP 97.7; O2SAT 94
[2023-08-13] MEDS: IBUPROFEN 400 MG TABLET PO PRN (16:31)
[2023-08-14] MEDS ORDERED: LEVOTHYROXINE SODIUM 100 MCG TABLET PO SCH (06:30)
[2023-08-15] MEDS ORDERED: ERGOCALCIFEROL (VITAMIN D 2) 50,000 UNIT CAPSULE PO SCH (09:00)
== END 2023-08-13 17:42 | DRG 641 ==
LOC: ER 15:28 → TRANSITION 18:25 → MED 22:10
PROVIDERS: ADMIT Nurse Practitioner Acute Care; ATTEND Nurse Practitioner Acute Care
DX: E86.0 Dehydration (principal); N39.0 Urinary tract infection, site not specified; F43.10 Post-traumatic stress disorder, unspecified; K21.9 Gastro-esophageal reflux disease without esophagitis; Z90.49 Acquired absence of other specified parts of digestive tract; Z88.1 Allergy status to other antibiotic agents; Z91.030 Bee allergy status; Z91.040 Latex allergy status; Z88.5 Allergy status to narcotic agent; Z91.018 Allergy to other foods; Z79.890 Hormone replacement therapy; Z79.899 Other long term (current) drug therapy; Z88.0 Allergy status to penicillin; Z88.2 Allergy status to sulfonamides; F32.A Depression, unspecified; E03.9 Hypothyroidism, unspecified; K29.70 Gastritis, unspecified, without bleeding; F41.9 Anxiety disorder, unspecified; X58.XXXA Exposure to other specified factors, initial encounter; Y92.9 Unspecified place or not applicable; F29 Unspecified psychosis not due to a substance or known physiological condition; R79.89 Other specified abnormal findings of blood chemistry; B96.89 Other specified bacterial agents as the cause of diseases classified elsewhere
CPT/HCPCS: 36415; 76770-TC; 80048-TC; 81001; 82962-TC; 83735-TC; 84100-TC; 85025-TC; 97116-TC; 97530-TC; A4223; G0378; J7030; J7060

== ENCOUNTER 2023-12-19 14:37 | Emergency (ER) | payer MEDICARE, OTHER ==
[~2023-12-19] VITALS: Ht 152.4 cm; Wt 95.3 kg
[~2023-12-19 14:37] MED LIST changes: -CHOL100043 PO; -CITRACAL+D PO; -CRAN400C PO; +CRAN400T3 PO; +DICL100G34 TP; -DOCU100C36 PO; +EPIN0.3A4 IM; +ERGO500093 PO; -GUAI-970 PO; -IBUP-1955 PO; +IBUP-1957 PO; -LIDO1ADH82 TP; +LORA-259 PO; -LORA2TAB95 PO; -MELA1TAB17 PO; +MELA5TAB PO; +NITR100C15 PO; +OMEG-162 PO; -OMEG-88 PO; -OMEP20CA15 PO; +PHEN-704 PO; +PHEN-894 PO; +PYRI100T22 PO; +SODI45SP6 BNOSTRILS; +TIZA4TAB5 PO
--- NOTE | 2023-12-19 15:00 | NUR ---
BIBS FOR NAUSEA/VOMITING. A/O X 3, ABLE TO MAKE NEEDS KNOWN, TOLERATING WELL ON ROOM AIR. WILL CONTINUE TO MONITOR.
[2023-12-19] MEDS ORDERED: TRAMADOL HCL 50 MG TABLET ONE ×2 (15:58→17:43)
[2023-12-19] MEDS: TRAMADOL HCL 50 MG TABLET PO ONE ×2 (15:58→17:45)
--- NOTE | 2023-12-19 15:58 | NUR ---
100 MG ULTRAM PO ADMINISTERED ORDERED
[2023-12-19] MEDS ORDERED: TRAM50TA2 PO ×2 (18:14→18:15)
--- NOTE | 2023-12-19 18:27 | NUR ---
per Tarsha Hair, [facility] is used by their facility for patient prescriptions
--- NOTE | 2023-12-19 18:34 | NUR ---
prescription sent to [facility]
--- NOTE | 2023-12-19 18:37 | NUR ---
CALLED [facility] ETA 2000 HOURS
--- NOTE | 2023-12-19 19:45 | NUR ---
Patient discharged to home in stable condition. Written and verbal after care instructions given. Patient verbalizes understanding of instruction.
[2023-12-19 19:46] VITALS: BP 134/70; TEMP 98.2; O2SAT 97
== END 2023-12-19 19:47 | disposition home or self-care (01) ==
LOC: ER 14:51
DX: G89.29 Other chronic pain (principal); Z76.0 Encounter for issue of repeat prescription; I10 Essential (primary) hypertension; E11.9 Type 2 diabetes mellitus without complications; Z79.1 Long term (current) use of non-steroidal anti-inflammatories (NSAID); Z79.899 Other long term (current) drug therapy; Z88.2 Allergy status to sulfonamides; Z88.0 Allergy status to penicillin; Z88.5 Allergy status to narcotic agent